=== PATIENT | male | born 1990 | race Caucasian/White ===

== ENCOUNTER 2017-05-01 04:28 | Emergency (ER) | payer SELFPAY ==
[~2017-05-01] VITALS: Ht 177.8 cm; Wt 65.8 kg
[2017-05-01 05:17] LABS: BASOPHILS % (AUTO) 0 % (0-10); EOSINOPHILS # (AUTO) 0.1 10^3/uL (0.0-0.3); EOSINOPHILS % (AUTO) 2 % (0-10); LYMPHOCYTES # (AUTO) 2.7 X 10^3 (1.0-4.0); LYMPHOCYTES % (AUTO) 36 % (12-44); MEAN CORPUSCULAR HEMOGLOBIN 30 PG (25-34); MEAN CORPUSCULAR HGB CONC 35 G/DL (32-36); MEAN CORPUSCULAR VOLUME 86 FL (80-99); MONOCYTES # (AUTO) 0.7 X 10^3 (0.0-1.0); MONOCYTES % (AUTO) 9 % (0-12); NEUTROPHILS % (AUTO) 53 % (42-75); PLATELET COUNT 221 10^3/uL (130-400); RED BLOOD COUNT 4.73 10^6/uL (4.35-5.85); RED CELL DISTRIBUTION WIDTH 12.2 % (10.0-14.5); WHITE BLOOD COUNT 7.5 10^3/uL (4.3-11.0)
[2017-05-01] MEDS ORDERED: NS 100 ML (IVPB) BAG IV ONE (05:30)
[2017-05-01] MEDS ORDERED: IOHEXOL 350 MG/ML 100 ML (OMNIPAQUE 350) VIAL IV ONE (05:30)
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
[2017-05-01 05:42] LABS: ALANINE AMINOTRANSFERASE 19 U/L (0-55); ANION GAP 12 MMOL/L (5-14); ASPARTATE AMINO TRANSFERASE 25 U/L (5-34); BILIRUBIN,TOTAL 0.7 MG/DL (0.1-1.0); BLOOD UREA NITROGEN 15 MG/DL (7-18); BUN/CREATININE RATIO 14; CALCIUM 8.5 MG/DL (8.5-10.1); CARBON DIOXIDE 22 MMOL/L (21-32); CHLORIDE 107 MMOL/L (98-107); CREATININE SERUM 1.11 MG/DL (0.60-1.30); GFR ESTIMATED > 60; GLUCOSE 93 MG/DL (70-105); POTASSIUM 3.6 MMOL/L (3.6-5.0); SODIUM 141 MMOL/L (135-145); TOTAL PROTEIN 6.9 GM/DL (6.4-8.2)
[2017-05-01 06:04] LABS: BILIRUBIN,URINE NEGATIVE (NEGATIVE); KETONES,URINE NEGATIVE (NEGATIVE); LEUKOCYTE ESTERASE ,URINE 1+ (NEGATIVE); NITRITE,URINE NEGATIVE (NEGATIVE); PH,URINE 6 (5-9); PROTEIN,URINE NEGATIVE (NEGATIVE); UROBILINOGEN,URINE NORMAL (NORMAL)
[2017-05-01] MEDS ORDERED: CYCL10TA9 PO (06:19)
[2017-05-01] MEDS ORDERED: KETOROLAC 30 MG/ML VIAL IVP ONE (06:30)
[2017-05-01 06:32] VITALS: BP 139/104
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
== END 2017-05-01 06:32 | disposition home or self-care (01) ==
LOC: ER 04:34
DX: M62.830 Muscle spasm of back (principal); G43.909 Migraine, unspecified, not intractable, without status migrainosus; Z86.19 Personal history of other infectious and parasitic diseases; V86.59XA Driver of other special all-terrain or other off-road motor vehicle injured in nontraffic accident, initial encounter
CPT/HCPCS: 36415; 70450; 71260; 72125; 74177; 80053; 81000; 85025

== ENCOUNTER 2017-05-07 10:23 | Emergency (ER) | payer SELFPAY ==
[~2017-05-07] VITALS: Ht 177.8 cm; Wt 65.8 kg
[~2017-05-07 10:23] MED LIST: CYCL10TA9 PO
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
[2017-05-07 11:27] LABS: BASOPHILS % (AUTO) 0 % (0-10); EOSINOPHILS % (AUTO) 1 % (0-10); LYMPHOCYTES # (AUTO) 1.9 X 10^3 (1.0-4.0); LYMPHOCYTES % (AUTO) 24 % (12-44); MEAN CORPUSCULAR HEMOGLOBIN 30 PG (25-34); MEAN CORPUSCULAR HGB CONC 36 G/DL (32-36); MEAN CORPUSCULAR VOLUME 84 FL (80-99); MONOCYTES # (AUTO) 0.5 X 10^3 (0.0-1.0); MONOCYTES % (AUTO) 7 % (0-12); NEUTROPHILS # (AUTO) 5.2 X 10^3 (1.8-7.8); NEUTROPHILS % (AUTO) 68 % (42-75); PLATELET COUNT 228 10^3/uL (130-400); RED BLOOD COUNT 5.02 10^6/uL (4.35-5.85); WHITE BLOOD COUNT 7.7 10^3/uL (4.3-11.0)
[2017-05-07] MEDS ORDERED: ONDANSETRON 4 MG/2 ML (SDV) Z0FRAN IVP ONE (11:30)
[2017-05-07] MEDS ORDERED: NS IV 1000 ML 1,000 ML IV SCH (11:30)
[2017-05-07] MEDS ORDERED: KETOROLAC 30 MG/ML VIAL IVP ONE (11:30)
[2017-05-07 11:49] LABS: ALANINE AMINOTRANSFERASE 19 U/L (0-55); ALBUMIN 4.3 GM/DL (3.2-4.5); ANION GAP 6 MMOL/L (5-14); ASPARTATE AMINO TRANSFERASE 23 U/L (5-34); BILIRUBIN,TOTAL 0.7 MG/DL (0.1-1.0); BLOOD UREA NITROGEN 15 MG/DL (7-18); BUN/CREATININE RATIO 15; CARBON DIOXIDE 27 MMOL/L (21-32); CHLORIDE 105 MMOL/L (98-107); CREATININE SERUM 1.03 MG/DL (0.60-1.30); GFR ESTIMATED > 60; GLUCOSE 87 MG/DL (70-105); POTASSIUM 4.2 MMOL/L (3.6-5.0); SODIUM 138 MMOL/L (135-145); TOTAL PROTEIN 7.5 GM/DL (6.4-8.2)
[2017-05-07 12:08] LABS: BILIRUBIN,URINE NEGATIVE (NEGATIVE); KETONES,URINE NEGATIVE (NEGATIVE); LEUKOCYTE ESTERASE ,URINE 1+ (NEGATIVE); NITRITE,URINE NEGATIVE (NEGATIVE); PH,URINE 6 (5-9); PROTEIN,URINE NEGATIVE (NEGATIVE); UROBILINOGEN,URINE NORMAL (NORMAL)
[2017-05-07 12:19] LABS: SQUAMOUS EPITHELIAL CELL,UR 0-2 /HPF; WBC,URINE RARE /HPF
[2017-05-07 12:36] VITALS: BP 135/97
== END 2017-05-07 12:35 | disposition home or self-care (01) ==
LOC: EDUNIT# 10:23 → ER 10:25
DX: R42 Dizziness and giddiness (principal); G43.909 Migraine, unspecified, not intractable, without status migrainosus; Z87.39 Personal history of other diseases of the musculoskeletal system and connective tissue; Z87.828 Personal history of other (healed) physical injury and trauma
CPT/HCPCS: 36415; 80053; 80306; 81000; 85025

== ENCOUNTER 2017-05-22 04:30 | Emergency (ER) | payer SELFPAY ==
[~2017-05-22] VITALS: Ht 177.8 cm; Wt 65.8 kg
[2017-05-22 04:52] LABS: BILIRUBIN,URINE NEGATIVE (NEGATIVE); KETONES,URINE NEGATIVE (NEGATIVE); LEUKOCYTE ESTERASE ,URINE 1+ (NEGATIVE); NITRITE,URINE NEGATIVE (NEGATIVE); PH,URINE 7 (5-9); PROTEIN,URINE NEGATIVE (NEGATIVE); UROBILINOGEN,URINE NORMAL (NORMAL)
[2017-05-22 05:00] LABS: SQUAMOUS EPITHELIAL CELL,UR 0-2 /HPF; WBC,URINE 0-2 /HPF
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
[2017-05-22] MEDS ORDERED: MELO15TA14 PO (06:19)
[2017-05-22] MEDS ORDERED: CYCL10TA9 PO (06:19)
[2017-05-22 06:24] VITALS: BP 138/99
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
== END 2017-05-22 06:24 | disposition home or self-care (01) ==
LOC: EDUNIT# 04:30 → ER 04:32
DX: M51.86 Other intervertebral disc disorders, lumbar region; G43.909 Migraine, unspecified, not intractable, without status migrainosus
CPT/HCPCS: 72131; 80306; 81000; 87088; 99282

== ENCOUNTER 2018-11-19 20:24 | Emergency (ER) | payer SELFPAY ==
[~2018-11-19] VITALS: Ht 177.8 cm; Wt 69.4 kg
[~2018-11-19 20:24] MED LIST changes: +MELO15TA14 PO
[2018-11-19] MEDS ORDERED: ONDANSETRON 4 MG (ZOFRAN) ORAL DISSOLVE TAB PO STA (20:32)
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
[2018-11-19] MEDS ORDERED: KETOROLAC 60 MG/2 ML VIAL IM ONE (20:45)
--- NOTE | 2018-11-19 21:12 | Diagnostic Imaging Report ---
INDICATION: Back pain. FINDINGS: 3 views of the lumbar spine shows normal height and alignment of the vertebral bodies. Disc spaces are well-maintained. There is no spondylosis. There is no fracture. IMPRESSION: Normal lumbar spine. Dictated by: Dictated on workstation # [id number]
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
[2018-11-19] MEDS ORDERED: CYCL10TA9 PO (22:06)
[2018-11-19] MEDS ORDERED: IBUP-1780 PO (22:06)
[2018-11-19 22:17] VITALS: BP 125/73
== END 2018-11-19 22:17 | disposition home or self-care (01) ==
LOC: EDUNIT# 20:24 → ER FS 20:25
DX: T74.11XA Adult physical abuse, confirmed, initial encounter (principal); S06.0X9A Concussion with loss of consciousness of unspecified duration, initial encounter; S20.212A Contusion of left front wall of thorax, initial encounter; S10.93XA Contusion of unspecified part of neck, initial encounter; M54.6 Pain in thoracic spine; G43.909 Migraine, unspecified, not intractable, without status migrainosus; R40.2142 Coma scale, eyes open, spontaneous, at arrival to emergency department; R40.2252 Coma scale, best verbal response, oriented, at arrival to emergency department; R40.2362 Coma scale, best motor response, obeys commands, at arrival to emergency department; Y04.8XXA Assault by other bodily force, initial encounter; Y92.009 Unspecified place in unspecified non-institutional (private) residence as the place of occurrence of the external cause; Y07.410 Brother, perpetrator of maltreatment and neglect
CPT/HCPCS: 70450; 71250; 72100; 72125; 96372

== ENCOUNTER → 2018-11-21 | Outpatient (CLI) | payer SELFPAY ==
[~2018-11-21] MED LIST changes: +IBUP-1780 PO
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
== END ==
LOC: RAD FS 11:11
PROVIDERS: ATTEND Family Medicine
DX: S29.9XXA Unspecified injury of thorax, initial encounter (principal)
CPT/HCPCS: 71100

== ENCOUNTER → 2018-12-24 | Outpatient (CLI) | payer SELFPAY ==
--- NOTE | 2018-12-24 09:56 | Diagnostic Imaging Report ---
INDICATION: Syncope, TECHNIQUE: Routine non contrast-enhanced axial images were obtained from the skull base to the vertex. Auto Exposure Controls were utilized during the CT exam to meet ALARA standards for radiation dose reduction COMPARISON: 11/19/2018. FINDINGS: The ventricles and cortical sulci are normal in size and contour. There is no midline shift or mass-effect. No acute intra-axial hemorrhage is seen. There are no abnormal areas of increased or decreased density to suggest acute hemorrhage or edema. No extra-axial masses or collections are present. The bony calvarium is intact. The visualized paranasal sinuses are unremarkable. The mastoid air cells are clear. IMPRESSION: 1. No acute intracranial abnormality. No CT evidence of mass, acute infarct or intracranial hemorrhage. Dictated by: Dictated on workstation # [id number]
== END ==
LOC: RAD FS 09:19
PROVIDERS: ATTEND Family Medicine
DX: R55 Syncope and collapse (principal)
CPT/HCPCS: 70450

== ENCOUNTER 2019-01-31 06:54 | Emergency (ER) | payer SELFPAY ==
[~2019-01-31] VITALS: Ht 177.8 cm; Wt 68.9 kg
--- NOTE | 2019-01-31 07:14 | ED Abdominal Pain ---
General Chief Complaint: Abdominal/GI Problems Stated Complaint: RT SIDE ABD PAIN;VOMITING BLOOD Source of Information: Patient Exam Limitations: No Limitations History of Present Illness Date Seen by Provider: Jan 31, 2019 Time Seen by Provider: 07:12 Initial Comments Patient complains of upper abdominal pain for the past week. Pain is crampy and does not radiate. It is associated with nausea and vomiting. He is vomited 4 times today the last of which was streaked with blood. He denies fevers or chills. His primary care physician ordered labs on him earlier in the week and scheduled an ultrasound. Allergies and Home Medications Allergies Coded Allergies: No Known Drug Allergies (Unverified , 05/01/17) Home Medications Cyclobenzaprine HCl 10 Mg Tablet, 10 MG PO BID PRN for MUSCLE SPASMS Prescribed by: JENNYFER DEL TORO on 11/19/182205 Dicyclomine HCl 20 Mg Tablet, 20 MG PO QID PRN for PAIN-MILD TO MODERATE Prescribed by: BENITA DOUGLAS on 01/31/19 0757 Ibuprofen 800 Mg Tablet, 800 MG PO Q8H PRN for PAIN Prescribed by: JENNYFER DEL TORO on 11/19/182205 Meloxicam 15 Mg Tablet, 15 MG PO DAILY Prescribed by: DESHAUN ROWLAND on 05/22/17 0619 Patient Home Medication List Home Medication List Reviewed: Yes Review of Systems Review of Systems Constitutional: no symptoms reported EENTM: No Symptoms Reported Respiratory: No Symptoms Reported Gastrointestinal: Abdominal Pain, Nausea, Vomiting Genitourinary: No Symptoms Reported Musculoskeletal: no symptoms reported Skin: no symptoms reported All Other Systems Reviewed Negative Unless Noted: Yes Past Jwpgyuj-Vdxotk-Asctph Hx Patient Social History Alcohol Use: Denies Use 2nd Hand Smoke Exposure: No Recent Foreign Travel: No Contact w/Someone Who Travel: No Recent Hopitalizations: No Seasonal Allergies Seasonal Allergies: No Past Medical History Surgeries: No Respiratory: No Cardiac: No Neurological: No Headaches /Migraines Reproductive Disorders: No Genitourinary: No Gastrointestinal: No Musculoskeletal: Yes Degenerate Disk Disease Endocrine: No HEENT: No Cancer: No Psychosocial: No Integumentary: No Psoriasis Blood Disorders: No Adverse Reaction/Blood Tranf: No Physical Exam Vital Signs Vital Signs - First Documented 01/31/19 07:11 Temp 96.1 Pulse 74 Resp 18 B/P (MAP) 145/90 (108) Pulse Ox 99 Capillary Refill : Height/Weight/BMI Height: 5'10.00" Weight: 153lbs. oz. 69.682110ab; BMI Method:Stated General Appearance: WD/WN, no apparent distress HEENT: pharynx normal Neck: supple Respiratory: lungs clear Cardiovascular: regular rate, rhythm, no edema Gastrointestinal: soft; No guarding, No rebound; tenderness (tender in epi gastrium and right upper quadrant, no Renee's) Extremities: normal inspection Neurologic/Psychiatric: alert, normal mood/affect Skin: normal color Progress/Results/Core Measures Results/Orders Lab Results Laboratory Tests Test 01/31/19 07:25 Range/Units White Blood Count 9.2 4.3-11.0 10^3/uL Red Blood Count 5.06 4.35-5.85 10^6/uL Hemoglobin 15.4 13.3-17.7 G/DL Hematocrit 44 40-54 % Mean Corpuscular Volume 88 80-99 FL Mean Corpuscular Hemoglobin 30 25-34 PG Mean Corpuscular Hemoglobin Concent 35 32-36 G/DL Red Cell Distribution Width 12.3 10.0-14.5 % Platelet Count 244 130-400 10^3/uL Mean Platelet Volume 10.3 7.4-10.4 FL Neutrophils (%) (Auto) 70 42-75 % Lymphocytes (%) (Auto) 21 12-44 % Monocytes (%) (Auto) 8 0-12 % Eosinophils (%) (Auto) 1 0-10 % Basophils (%) (Auto) 0 0-10 % Neutrophils # (Auto) 6.4 1.8-7.8 X 10^3 Lymphocytes # (Auto) 1.9 1.0-4.0 X 10^3 Monocytes # (Auto) 0.7 0.0-1.0 X 10^3 Eosinophils # (Auto) 0.1 0.0-0.3 10^3/uL Basophils # (Auto) 0.0 0.0-0.1 10^3/uL Sodium Level 140 135-145 MMOL/L Potassium Level 3.7 3.6-5.0 MMOL/L Chloride Level 99 98-107 MMOL/L Carbon Dioxide Level 28 21-32 MMOL/L Anion Gap 13 5-14 MMOL/L Blood Urea Nitrogen 11 7-18 MG/DL Creatinine 1.14 0.60-1.30 MG/DL Estimat Glomerular Filtration Rate > 60 BUN/Creatinine Ratio 10 Glucose Level 94 70-105 MG/DL Calcium Level 9.0 8.5-10.1 MG/DL Corrected Calcium 8.7 8.5-10.1 MG/DL Total Bilirubin 0.8 0.1-1.0 MG/DL Aspartate Amino Transf (AST/SGOT) 21 5-34 U/L Alanine Aminotransferase (ALT/SGPT) 20 0-55 U/L Alkaline Phosphatase 94 40-136 U/L Total Protein 7.8 6.4-8.2 GM/DL Albumin 4.4 3.2-4.5 GM/DL Lipase 140 H 8-78 U/L My Orders Orders - BENITA DOUGLAS MD Cbc With Automated Diff (01/31/19 07:07) Comprehensive Metabolic Panel (01/31/19 07:07) Lipase (01/31/19 07:07) Dicyclomine Injection (Bentyl Injection) (01/31/19 07:15) Medications Given in ED Current Medications Medications Dose Ordered Sig/Gerry Route Start Time Stop Time Status Last Admin Dose Admin Dicyclomine HCl 20 mg ONCE ONCE IM 01/31/19 07:15 01/31/19 07:16 DC 01/31/19 07:20 20 MG Vital Signs/I&O 01/31/19 01/31/19 07:11 08:07 Temp 96.1 Pulse 74 59 Resp 18 16 B/P (MAP) 145/90 (108) 135/80 (98) Pulse Ox 99 99 Progress Progress Note : Time: 07:59 Progress Note This was discussed with patient. He feels better after Bentyl. Elevated lipase was noted. Advised to follow-up primary care physician and get his ultrasound as soon as possible. Departure Impression Primary Impression: Abdominal pain Additional Impression: Biliary colic Disposition: 01 HOME, SELF-CARE Condition: Stable Departure-Patient Inst. Decision time for Depature: 07:54 Referrals: TIFFANI MAN MD (PCP/Family) Primary Care Physician Patient Instructions: Acute Abdomen (Belly Pain), Adult (DC) Add. Discharge Instructions: Plan diet. No spicy, greasy fried foods. Get ultrasound done as soon as possible. All discharge instructions reviewed with patient and/or family. Voiced understanding. Scripts Dicyclomine HCl (Dicyclomine HCl) 20 Mg Tablet 20 MG PO QID PRN for PAIN-MILD TO MODERATE, #20 TAB 0 Refills Prov: BENITA DOUGLAS MD 01/31/19 BENITA DOUGLAS MD Jan 31, 2019 07:14
[2019-01-31] MEDS ORDERED: DICYCLOMINE 10 MG/ML (BENTYL) 2 ML AMP IM ONE (07:15)
[2019-01-31 07:35] LABS: HEMATOCRIT 44 % (40-54); HEMOGLOBIN 15.4 G/DL (13.3-17.7); MEAN CORPUSCULAR HEMOGLOBIN 30 PG (25-34); MEAN CORPUSCULAR HGB CONC 35 G/DL (32-36); MEAN CORPUSCULAR VOLUME 88 FL (80-99); RED CELL DISTRIBUTION WIDTH 12.3 % (10.0-14.5); WHITE BLOOD COUNT 9.2 10^3/uL (4.3-11.0)
[2019-01-31 07:36] LABS: BASOPHILS % (AUTO) 0 % (0-10); EOSINOPHILS # (AUTO) 0.1 10^3/uL (0.0-0.3); EOSINOPHILS % (AUTO) 1 % (0-10); LYMPHOCYTES # (AUTO) 1.9 X 10^3 (1.0-4.0); LYMPHOCYTES % (AUTO) 21 % (12-44); MEAN PLATELET VOLUME 10.3 FL (7.4-10.4); MONOCYTES # (AUTO) 0.7 X 10^3 (0.0-1.0); MONOCYTES % (AUTO) 8 % (0-12); NEUTROPHILS # (AUTO) 6.4 X 10^3 (1.8-7.8); NEUTROPHILS % (AUTO) 70 % (42-75); PLATELET COUNT 244 10^3/uL (130-400)
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
[2019-01-31 07:57] LABS: BUN/CREATININE RATIO 10; CARBON DIOXIDE 28 MMOL/L (21-32); CHLORIDE 99 MMOL/L (98-107); CREATININE SERUM 1.14 MG/DL (0.60-1.30); GFR ESTIMATED > 60; POTASSIUM 3.7 MMOL/L (3.6-5.0); SODIUM 140 MMOL/L (135-145)
[2019-01-31] MEDS ORDERED: DICY20TA10 PO (07:57)
[2019-01-31 07:58] LABS: ALANINE AMINOTRANSFERASE 20 U/L (0-55); ALBUMIN 4.4 GM/DL (3.2-4.5); ALKALINE PHOSPHATASE 94 U/L (40-136); BILIRUBIN,TOTAL 0.8 MG/DL (0.1-1.0); GLUCOSE 94 MG/DL (70-105); LIPASE 140 U/L (8-78); TOTAL PROTEIN 7.8 GM/DL (6.4-8.2)
[2019-01-31 08:07] VITALS: BP 135/80
== END 2019-01-31 08:13 | disposition home or self-care (01) ==
LOC: EDUNIT# 06:54 → ER FS 06:56
DX: K80.50 Calculus of bile duct without cholangitis or cholecystitis without obstruction (principal); G43.909 Migraine, unspecified, not intractable, without status migrainosus
CPT/HCPCS: 36415; 80053; 83690; 85025

== ENCOUNTER → 2019-04-10 | Outpatient (CLI) | payer SELFPAY ==
[~2019-04-10] MED LIST changes: +CATHETER FLUSH 10 ML SYR IV PRN; +DICY20TA10 PO
--- NOTE | 2019-04-10 21:23 | Diagnostic Imaging Report ---
INDICATION: Right upper quadrant pain. EXAMINATION: Patient was administered 5.0 mCi technetium 99m Choletec intravenously and imaging over the abdomen was performed. After 60 minutes patient ingested one can of Ensure and gallbladder ejection fraction was calculated. FINDINGS: There is homogeneous uptake of activity by the liver. There is prompt excretion of activity into the common duct and gallbladder. Normal passage of activity into the small bowel is seen. Gallbladder ejection fraction is 83%. IMPRESSION: Normal HIDA scan and gallbladder ejection fraction. Dictated by: Dictated on workstation # [id number]
== END ==
LOC: CARD 12:19
PROVIDERS: ATTEND Surgery
DX: R10.13 Epigastric pain (principal)
CPT/HCPCS: 78227

== ENCOUNTER 2019-05-21 14:45 | Emergency (ER) | payer SELFPAY ==
[~2019-05-21] VITALS: Ht 177 cm; Wt 80.0 kg
[~2019-05-21 14:45] MED LIST changes: -CATHETER FLUSH 10 ML SYR IV PRN
--- NOTE | 2019-05-21 15:11 | ED General ---
General Stated Complaint: WOUND CHECK Source of Information: Patient Exam Limitations: No Limitations History of Present Illness Date Seen by Provider: May 21, 2019 Time Seen by Provider: 14:55 Initial Comments Patient had a lap savannah today in [place] by Dr John Zelaya. Afterward, had some bleeding through the bandage and went back to surgery ctr where dressing was changed by Dr Zelaya and sent home. Comes to this ER now w c/o bleeding through his dressing again. Allergies and Home Medications Allergies Coded Allergies: No Known Drug Allergies (Unverified , 05/01/17) Home Medications Cyclobenzaprine HCl 10 Mg Tablet, 10 MG PO BID PRN for MUSCLE SPASMS Prescribed by: JENNYFER DEL TORO on 11/19/182205 Dicyclomine HCl 20 Mg Tablet, 20 MG PO QID PRN for PAIN-MILD TO MODERATE Prescribed by: BENITA DOUGLAS on 01/31/19 0757 Ibuprofen 800 Mg Tablet, 800 MG PO Q8H PRN for PAIN Prescribed by: JENNYFER Gutierrez ENYART on 11/19/182205 Meloxicam 15 Mg Tablet, 15 MG PO DAILY Prescribed by: DESHAUN ROWLAND on 05/22/17 0619 Patient Home Medication List Home Medication List Reviewed: Yes Review of Systems Review of Systems Constitutional: no symptoms reported; No fever, No malaise, No weakness Respiratory: no symptoms reported Cardiovascular: no symptoms reported Gastrointestinal: abdominal pain; No nausea, No vomiting Skin: see HPI, other (bleeding from belly button (post op incision) 2 to lap savannah) Past Glelnwt-Ockyoe-Aldubt Hx Past Med/Social Hx: Reviewed Nursing Past Med/Soc Hx Patient Social History 2nd Hand Smoke Exposure: No Recent Hopitalizations: No Seasonal Allergies Seasonal Allergies: No Past Medical History Surgeries: No Respiratory: No Cardiac: No Neurological: Yes Headaches /Migraines, Traumatic Brain Injury Reproductive Disorders: No Genitourinary: No Gastrointestinal: No Musculoskeletal: Yes Degenerate Disk Disease Endocrine: No HEENT: No Cancer: No Psychosocial: No Integumentary: No Psoriasis Blood Disorders: No Adverse Reaction/Blood Tranf: No Physical Exam Vital Signs Vital Signs - First Documented 05/21/19 15:12 Temp 37.3 Pulse 83 Resp 18 B/P (MAP) 150/79 (102) Pulse Ox 98 O2 Delivery Room Air Capillary Refill : Height, Weight, BMI Height: 5'10.00" Weight: 152lbs. oz. 68.676131qo; BMI Method:Stated General Appearance: No Apparent Distress, WD/WN Gastrointestinal: No Distended, No Guarding; Other (small oozing of blood from umbilical incision. sub cutaneous stitch intact, but a little loose.) Progress/Results/Core Measures Suspected Sepsis SIRS Temperature: Pulse: Respiratory Rate: Blood Pressure / Mean: Results/Orders Vital Signs/I&O 05/21/19 05/21/19 15:12 15:21 Temp 37.3 37.3 Pulse 83 83 Resp 18 18 B/P (MAP) 150/79 (102) 150/79 (102) Pulse Ox 98 98 O2 Delivery Room Air Capillary Refill : Progress Note : Progress Note nurse instructed to apply gel-foam type material (hemostatic) and pressure dressing. Called Dr Zelaya @ [phone], he will see pt in the office in [place] tomorrow if still bleeding. Departure Impression Primary Impression: Postoperative hemorrhage from incision Disposition: 01 HOME, SELF-CARE Condition: Improved Departure-Patient Inst. Referrals: TIFFANI MAN MD (PCP/Family) Primary Care Physician Patient Instructions: Bleeding After Surgery Add. Discharge Instructions: Call Dr Zelaya's office in [place] tomorrow to be seen if bleeding continues. ALLAN ESTEVEZ DO May 21, 2019 15:11
[2019-05-21 15:21] VITALS: BP 150/79
== END 2019-05-21 15:22 | disposition home or self-care (01) ==
LOC: EDUNIT# 14:45 → ER FS 14:46
DX: L76.22 Postprocedural hemorrhage of skin and subcutaneous tissue following other procedure (principal); G43.909 Migraine, unspecified, not intractable, without status migrainosus; Z87.820 Personal history of traumatic brain injury; Z90.49 Acquired absence of other specified parts of digestive tract
CPT/HCPCS: 99282

== ENCOUNTER 2019-05-21 18:08 | Emergency (ER) | payer SELFPAY ==
[~2019-05-21] VITALS: Ht 177.8 cm; Wt 80.0 kg
[2019-05-21] MEDS ORDERED: LIDOCAINE/EPI 2% 1:100,00 (XYLOCAINE) 20 ML VIAL ONE (18:17)
--- NOTE | 2019-05-21 18:29 | ED Integumentary General ---
General Chief Complaint: Skin/Wound Problems Stated Complaint: WOUND CHECK Source: patient Exam Limitations: no limitations History of Present Illness Date Seen by Provider: May 21, 2019 Time Seen by Provider: 18:20 Initial Comments Return to the ER with continued bleeding from his umbilical incision. Soaked through the dressing again. Called Dr Zelaya @ [phone]- discussed w him. He does not have privileges to see pt in this ER, but could meet pt in [place] if necessary. Requested a simple nylon suture be applied to umbilical incision and to call back if concerns or unusual findings. Allergies and Home Medications Allergies Coded Allergies: No Known Drug Allergies (Unverified , 05/01/17) Home Medications Cyclobenzaprine HCl 10 Mg Tablet, 10 MG PO BID PRN for MUSCLE SPASMS Prescribed by: JENNYFER DEL TORO on 11/19/182205 Dicyclomine HCl 20 Mg Tablet, 20 MG PO QID PRN for PAIN-MILD TO MODERATE Prescribed by: BENITA DOUGLAS on 01/31/19 0757 Ibuprofen 800 Mg Tablet, 800 MG PO Q8H PRN for PAIN Prescribed by: JENNYFER DEL TORO on 11/19/182205 Meloxicam 15 Mg Tablet, 15 MG PO DAILY Prescribed by: DESHAUN ROWLAND on 05/22/17 0619 Patient Home Medication List Home Medication List Reviewed: Yes Review of Systems Review of Systems Constitutional: no symptoms reported; No dizziness, No fever, No malaise, No weakness Respiratory: no symptoms reported Cardiovascular: No palpitations, No syncope Skin: other (bleeding from umbilical incision) Past Hbwyceg-Tziakw-Cxtftq Hx Past Med/Social Hx: Reviewed Nursing Past Med/Soc Hx Patient Social History Alcohol Use: Occasionally Uses Recreational Drug Use: No 2nd Hand Smoke Exposure: No Recent Hopitalizations: No Physical Abuse: No Sexual Abuse: No Mistreated: No Fear: No Seasonal Allergies Seasonal Allergies: No Past Medical History Surgeries: No Gallbladder Respiratory: No Cardiac: No Neurological: Yes Headaches /Migraines, Traumatic Brain Injury Reproductive Disorders: No Genitourinary: No Gastrointestinal: No Musculoskeletal: Yes Degenerate Disk Disease Endocrine: No HEENT: No Cancer: No Psychosocial: No Integumentary: No Psoriasis Blood Disorders: No Adverse Reaction/Blood Tranf: No Physical Exam Vital Signs Vital Signs - First Documented 05/21/19 18:08 Temp 37.1 Pulse 114 Resp 20 B/P (MAP) 148/89 (108) Pulse Ox 97 Capillary Refill : General Appearance: WD/WN, no apparent distress Cardiovascular: regular rate, rhythm Respiratory: no respiratory distress Skin: normal color, warm/dry, other (umbilical incision w small amount of bleeding from incision. Gauze saturated, but not severe bleed.) Procedures/Interventions Wound Location: Other (umbilical incision (post lap savannah)) Wound Length (cm): 2 Wound's Depth, Shape: linear Wound Explored: clean Anesthesia: Lidocaine w/ Epi Volume Anesthetic (ccs): 3 Suture: Ethlion Suture Size: 3-0 Number of Sutures: 2 Sterile Dressing Applied?: Yes Progress/Results/Core Measures Results/Orders My Orders Orders - ALLAN ESTEVEZ DO Lidocaine/Epi 2% 1:100,000 (Xylocaine/Ep (05/21/19 18:17) Lidocaine/Epi Mpf 2% 1:200,000 (Xylocain (05/21/19 18:30) Lidocaine/Epi 2% 1:100,000 (Xylocaine/Ep (05/21/19 18:45) Medications Given in ED Current Medications Medications Dose Ordered Sig/Gerry Route Start Time Stop Time Status Last Admin Dose Admin Lidocaine/ Epinephrine 5 ml ONCE ONCE INJ 05/21/19 18:45 05/21/19 18:46 DC 05/21/19 18:42 5 ML Vital Signs/I&O 05/21/19 18:08 Temp 37.1 Pulse 114 Resp 20 B/P (MAP) 148/89 (108) Pulse Ox 97 Progress Progress Note : Progress Note Re-eval after sutures and no active bleeding after 30m. filled umbilicus w surgicel in layers and then pressure dressing applied by nurse. Informed Dr Zelaya @ 1930 and he will see pt in [place] tomorrow if any problems or concerns. Departure Impression Primary Impression: Post-op bleeding Qualified Codes: L76.21 - Postprocedural hemorrhage of skin and subcutaneous tissue following a dermatologic procedure Disposition: 01 HOME, SELF-CARE Condition: Improved Departure-Patient Inst. Referrals: TIFFANI MAN MD (PCP/Family) Primary Care Physician Patient Instructions: Bleeding After Surgery Add. Discharge Instructions: All discharge instructions reviewed with patient and/or family. Voiced unde rstanding. Call Dr ZELAYA tomorrow (in [place]) if you are having any problems or concerns. ALLAN ESTEVEZ DO May 21, 2019 18:29
[2019-05-21] MEDS ORDERED: LIDOCAINE/EPI 2% 1:200,00 (XYLOCAINE) 10 ML VIAL INJ ONE (18:30)
[2019-05-21] MEDS ORDERED: LIDOCAINE/EPI 2% 1:100,00 (XYLOCAINE) 20 ML VIAL INJ ONE (18:45)
--- NOTE | 2019-05-21 18:45 | NUR ---
repairing lap site inc of umbilicus. 3-0 Ethilon 2 stitches placed. Pt will be observed 30 min at least for bleeding. Surgicel will be placed at time of pressure dsg over site at discharge.
--- NOTE | 2019-05-21 19:10 | NUR ---
Report to Gladis STEARNS.
[2019-05-21 19:34] VITALS: BP 117/65
== END 2019-05-21 19:34 | disposition home or self-care (01) ==
LOC: EDUNIT# 18:08 → ER FS 18:09
DX: L76.22 Postprocedural hemorrhage of skin and subcutaneous tissue following other procedure (principal); G43.909 Migraine, unspecified, not intractable, without status migrainosus; Z87.820 Personal history of traumatic brain injury
CPT/HCPCS: 12001

== ENCOUNTER → 2019-05-28 | Outpatient (CLI) | payer SELFPAY ==
--- NOTE | 2019-05-28 10:30 | Diagnostic Imaging Report ---
PROCEDURE: CT head without contrast. TECHNIQUE: Multiple contiguous axial images were obtained through the brain without the use of intravenous contrast. Auto Exposure Controls were utilized during the CT exam to meet ALARA standards for radiation dose reduction. DATE: May 28, 2019. COMPARISON: CT head December 24, 2018. November 19, 2018. May 01, 2017. INDICATION: 29-year-old male, atypical migraine headaches. Loss of vision 3 weeks ago for 15 minutes. FINDINGS: The ventricles and cerebral spinal fluid spaces are of normal size and configuration for the patient's age. There is no mass effect or midline shift. There is no acute intracranial hemorrhage. There is no abnormal extra-axial fluid collection. The visualized portions of the paranasal sinuses, mastoid air cells and middle ears are well aerated. IMPRESSION: 1. Unremarkable CT head examination without intravenous contrast. Dictated by: Dictated on workstation # [id number]
== END ==
LOC: RAD FS 09:28
PROVIDERS: ATTEND Family Medicine
DX: G43.009 Migraine without aura, not intractable, without status migrainosus (principal); H54.7 Unspecified visual loss
CPT/HCPCS: 70450

== ENCOUNTER 2020-04-25 10:23 | Emergency (ER) | payer SELFPAY ==
[~2020-04-25] VITALS: Ht 177.7 cm; Wt 68.1 kg
[2020-04-25] MEDS ORDERED: KETOROLAC 30 MG/ML VIAL IVP ONE (10:45)
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
[2020-04-25 10:46] LABS: BASOPHILS % (AUTO) 0 % (0-10); EOSINOPHILS % (AUTO) 0 % (0-10); HEMATOCRIT 43 % (40-54); LYMPHOCYTES # (AUTO) 1.9 X 10^3 (1.0-4.0); LYMPHOCYTES % (AUTO) 27 % (12-44); MEAN CORPUSCULAR HEMOGLOBIN 30 PG (25-34); MEAN CORPUSCULAR HGB CONC 35 G/DL (32-36); MEAN CORPUSCULAR VOLUME 85 FL (80-99); MONOCYTES # (AUTO) 0.4 X 10^3 (0.0-1.0); MONOCYTES % (AUTO) 5 % (0-12); NEUTROPHILS # (AUTO) 4.6 X 10^3 (1.8-7.8); NEUTROPHILS % (AUTO) 67 % (42-75); PLATELET COUNT 219 10^3/uL (130-400); WHITE BLOOD COUNT 6.9 10^3/uL (4.3-11.0)
[2020-04-25 10:54] LABS: ALBUMIN 4.2 GM/DL (3.2-4.5); CHLORIDE 103 MMOL/L (98-107); POTASSIUM 4.6 MMOL/L (3.6-5.0); SODIUM 136 MMOL/L (135-145)
[2020-04-25 10:55] LABS: CALCIUM 8.6 MG/DL (8.5-10.1)
[2020-04-25 10:56] LABS: GLUCOSE 143 MG/DL (70-105); TOTAL PROTEIN 7.6 GM/DL (6.4-8.2)
[2020-04-25 10:58] LABS: BILIRUBIN,TOTAL 0.6 MG/DL (0.1-1.0); CARBON DIOXIDE 21 MMOL/L (21-32)
[2020-04-25 11:00] LABS: ALKALINE PHOSPHATASE 82 U/L (40-136); CREATININE SERUM 1.12 MG/DL (0.60-1.30); GFR ESTIMATED > 60
[2020-04-25 11:01] LABS: BUN/CREATININE RATIO 18
[2020-04-25 11:03] LABS: ALANINE AMINOTRANSFERASE 31 U/L (0-55)
[2020-04-25 11:28] VITALS: BP 121/88
--- NOTE | 2020-04-25 11:35 | Diagnostic Imaging Report ---
EXAMINATION: Chest 1 view HISTORY: Chest pain. COMPARISON: 11/21/2018. FINDINGS: The lung volumes are normal. No focal consolidation is seen. No large pleural effusion or pneumothorax is seen. The cardiomediastinal silhouette is normal in size and contour. No acute osseous abnormality is seen. IMPRESSION: 1. No acute pleuroparenchymal process. Dictated by: Dictated on workstation # [id number]
== END 2020-04-25 11:31 | disposition home or self-care (01) ==
LOC: EDUNIT# 10:23 → ER 10:24
DX: R07.89 Other chest pain (principal); G43.909 Migraine, unspecified, not intractable, without status migrainosus; Z87.828 Personal history of other (healed) physical injury and trauma; Z87.820 Personal history of traumatic brain injury
CPT/HCPCS: 36415; 71045; 80053; 84484; 85025; 93005

== ENCOUNTER → 2020-05-17 | Outpatient (CLI) | payer SELFPAY ==
[2020-05-17 17:12] LABS: BASOPHILS % (AUTO) 0 % (0-10); EOSINOPHILS # (AUTO) 0.1 10^3/uL (0.0-0.3); EOSINOPHILS % (AUTO) 1 % (0-10); HEMATOCRIT 45 % (40-54); HEMOGLOBIN 15.8 G/DL (13.3-17.7); LYMPHOCYTES # (AUTO) 2.2 X 10^3 (1.0-4.0); LYMPHOCYTES % (AUTO) 26 % (12-44); MEAN CORPUSCULAR HEMOGLOBIN 30 PG (25-34); MEAN CORPUSCULAR HGB CONC 35 G/DL (32-36); MEAN CORPUSCULAR VOLUME 84 FL (80-99); MEAN PLATELET VOLUME 10.1 FL (7.4-10.4); MONOCYTES # (AUTO) 0.5 X 10^3 (0.0-1.0); MONOCYTES % (AUTO) 5 % (0-12); NEUTROPHILS # (AUTO) 5.9 X 10^3 (1.8-7.8); NEUTROPHILS % (AUTO) 68 % (42-75); PLATELET COUNT 222 10^3/uL (130-400); WHITE BLOOD COUNT 8.7 10^3/uL (4.3-11.0)
[2020-05-17 17:14] LABS: ALANINE AMINOTRANSFERASE 35 U/L (0-55); ALBUMIN 4.3 GM/DL (3.2-4.5); ALKALINE PHOSPHATASE 97 U/L (40-136); BILIRUBIN,TOTAL 0.6 MG/DL (0.1-1.0); BUN/CREATININE RATIO 12; CALCIUM 8.7 MG/DL (8.5-10.1); CARBON DIOXIDE 28 MMOL/L (21-32); CHLORIDE 103 MMOL/L (98-107); CHOLESTEROL 213 MG/DL (< 200); CREATININE SERUM 1.14 MG/DL (0.60-1.30); GFR ESTIMATED > 60; GLUCOSE 87 MG/DL (70-105); HDL CHOLESTEROL 38 MG/DL (40-60); MAGNESIUM 2.5 MG/DL (1.6-2.4); POTASSIUM 4.1 MMOL/L (3.6-5.0); SODIUM 139 MMOL/L (135-145); TOTAL PROTEIN 7.8 GM/DL (6.4-8.2); TRIGLYCERIDES 161 MG/DL (<150); VLDL CHOLESTEROL 32 MG/DL (5-40)
[2020-05-17 17:17] LABS: ERYTHROCYTE SEDIMENTATION RATE 6 MM/HR (0-15)
[2020-05-17 17:36] LABS: FREE T4 (FREE THYROXINE) 1.02 NG/DL (0.70-1.48)
== END ==
LOC: LAB 16:26
PROVIDERS: ATTEND Internal Medicine Cardiovascular Disease
DX: R07.9 Chest pain, unspecified (principal); R55 Syncope and collapse
CPT/HCPCS: 36415; 80053; 80061; 83735; 84439; 84443; 85025; 85652

== ENCOUNTER → 2020-05-18 | Outpatient (CLI) | payer SELFPAY | LOC: CARD 13:53 | PROVIDERS: ATTEND Internal Medicine Cardiovascular Disease | DX: R07.9 Chest pain, unspecified (principal); R55 Syncope and collapse | CPT/HCPCS: 93225; 93226; 93306; 93351 ==

== ENCOUNTER 2020-09-23 14:04 | Emergency (ER) | payer SELFPAY ==
[~2020-09-23] VITALS: Ht 177 cm; Wt 66.0 kg
--- NOTE | 2020-09-23 15:33 | Diagnostic Imaging Report ---
PROCEDURE: CT head without contrast. TECHNIQUE: Multiple contiguous axial images were obtained through the brain without the use of intravenous contrast. Auto Exposure Controls were utilized during the CT exam to meet ALARA standards for radiation dose reduction. INDICATION: Right-sided headache. Intermittent speech problems. FINDINGS: There is no mass, shift of the midline or hemorrhage to suggest an acute intracranial abnormality. The normal tentorial blush is evident. The ventricles are not abnormally dilated and stable in size when compared to the prior exam of 05/28/2019. The bone windows show no evidence for a skull fracture or for a destructive lesion. The orbits and sinuses were not visualized in their entirety. There does appear to be mild bilateral ethmoid sinusitis. IMPRESSION: 1. There is no evidence for an acute intracranial abnormality. 2. If clinical concern regarding an underlying abnormality persists, then MRI would be recommended for further study. Dictated by: Dictated on workstation # [id number]
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
[2020-09-23 16:35] VITALS: BP 132/62
== END 2020-09-23 16:35 | disposition home or self-care (01) ==
LOC: EDUNIT# 14:04 → ER 14:06
DX: R51.9 Headache, unspecified (principal); Z87.820 Personal history of traumatic brain injury
CPT/HCPCS: 70450

== ENCOUNTER 2021-03-03 08:38 | Emergency (ER) | payer SELFPAY ==
[~2021-03-03] VITALS: Ht 177 cm; Wt 67.0 kg
[2021-03-03 08:38] VITALS: BP 140/101
--- NOTE | 2021-03-03 08:58 | ED Lower Extremity ---
General Chief Complaint: Lower Extremity Stated Complaint: L LEG PAIN/BACK PAIN Nursing Triage Note: ARRIVED VIA AMB TO ROOM 07. STATES HE WOKE UP X2 DAYS AGO WITH LEFT KNEE PAIN AND NOW IS HAVING PAIN IN LEFT LEG AND BACK. DENIES INJURY. HAS NOT TAKEN ANYTHING FOR THE PAIN. Source: patient Exam Limitations: no limitations History of Present Illness Date Seen by Provider: Mar 03, 2021 Time Seen by Provider: 08:50 Initial Comments Patient is a 30-year-old male who presents to the emergency department today with a chief complaint of left knee pain. Patient states that it started 2 days ago and it extends from just below the knee up into the thigh and radiates into the low back. Patient denies any trauma. He has not taken anything for the pain, ibuprofen, Tylenol or naproxen. Walking on the left leg makes it worse. Nothing makes it any better. No loss of bowel or bladder function. No loss of sensation. All other review of systems reviewed and negative except as stated above. Onset: other (2 days ago) Severity: mild Pain/Injury Location: left knee Method of Injury: unknown Allergies and Home Medications Allergies Coded Allergies: No Known Drug Allergies (Unverified , 05/01/17) Patient Home Medication List Home Medication List Reviewed: Yes Review of Systems Constitutional: see HPI Respiratory: no symptoms reported Cardiovascular: no symptoms reported Gastrointestinal: no symptoms reported Musculoskeletal: joint pain (left knee), muscle cramps (left leg) Skin: no symptoms reported Psychiatric/Neurological: No Symptoms Reported All Other Systems Reviewed Negative Unless Noted: Yes Past Ktldbzy-Tizbwo-Alpsbr Hx Patient Social History Tobacco Use?: No Substance use?: No Alcohol Use?: No Seasonal Allergies Seasonal Allergies: No Past Medical History Surgeries: No Gallbladder Respiratory: No Cardiac: No Neurological: Yes Headaches /Migraines, Traumatic Brain Injury Reproductive Disorders: No Genitourinary: No Gastrointestinal: No Musculoskeletal: Yes Degenerate Disk Disease Endocrine: No HEENT: No Cancer: No Psychosocial: No Integumentary: No Psoriasis Blood Disorders: No Adverse Reaction/Blood Tranf: No Physical Exam Vital Signs Vital Signs - First Documented 03/03/21 08:38 Temp 36.0 Pulse 69 Resp 16 B/P (MAP) 140/101 (114) Pulse Ox 99 O2 Delivery Room Air Capillary Refill : Less Than 3 Seconds Height, Weight, BMI Height: 5'10.00" Weight: 152lbs. oz. [id number]; 21.00 BMI Method:Stated General Appearance: WD/WN, no apparent distress Neck: full range of motion Cardiovascular: other (distal pulses intact) Respiratory: lungs clear, normal breath sounds, no respiratory distress, no accessory muscle use Gastrointestinal: non tender, soft Hips: bilateral hip non-tender, bilateral hip normal inspection, bilateral hip normal range of motion, bilateral hip no evidence of injury Legs: bilateral leg non-tender, bilateral leg normal inspection, bilateral leg normal range of motion, bilateral leg no evidence of injury Knees: left knee pain, left knee other (left knee without effusion; no instability on anterior and posterior drawer testing; neg lachmans and erlin's; positive crepitance in the left knee on flexion) Ankles: bilateral ankle non-tender, bilateral ankle normal inspection, bilateral ankle normal range of motion, bilateral ankle no evidence of injury Feet: bilateral foot non-tender, bilateral foot normal inspection, bilateral foot normal range of motion, bilateral foot no evidence of injury Neurologic/Psychiatric: alert, normal mood/affect, oriented x 3 Skin: normal color, warm/dry Procedures/Interventions Suture Size: 3-0 Progress/Results/Core Measures Results/Orders Vital Signs/I&O 03/03/21 08:38 Temp 36.0 Pulse 69 Resp 16 B/P (MAP) 140/101 (114) Pulse Ox 99 O2 Delivery Room Air Blood Pressure Mean: 114 Departure Impression Primary Impression: Internal derangement of left knee Disposition: 01 HOME, SELF-CARE Condition: Stable Departure-Patient Inst. Decision time for Depature: 09:01 Referrals: TIFFANI MAN MD (PCP/Family) Primary Care Physician Patient Instructions: Knee Pain Add. Discharge Instructions: Take over the counter naproxen (alleve) 2 pills with food twice a day as needed for pain; for a maximum of 5 days. Alternate heat and ice for comfort. Follow up with your primary care doctor for further evaluation of your knee pain. Work/School Note: Work Release Form Date Seen in the Emergency Department: Mar 03, 2021 Return to Work: Mar 03, 2021 JAYLEN PALMA MD Mar 03, 2021 08:58
[2021-03-03] MEDS ORDERED: KETOROLAC 30 MG/ML VIAL IM ONE (09:15)
== END 2021-03-03 09:10 | disposition home or self-care (01) ==
LOC: EDUNIT# 08:38 → ER 08:40
DX: M23.92 Unspecified internal derangement of left knee (principal)
CPT/HCPCS: 99284

== ENCOUNTER 2021-05-12 00:01 | Emergency (ER) | payer SELFPAY ==
[~2021-05-12] VITALS: Ht 177.8 cm; Wt 68.0 kg
--- OUTSIDE RECORDS SUMMARY | 2021-05-12 01:18 | XMS REPORT | Clinical Summary ---
Author Author [facility] Organization [facility] Address Unknown Phone Unavailable Care Team Providers Care Page Designer Name Role Phone Pola Vincent MD PCP Source Comments Some departments are not documenting in the electronic medical record. If you d o not see the information that you expected, contact Release of Information in [facility] [employer] Information Management department at [phone] for further assistan ce in locating additional records.[facility] Allergies No Known Active Allergies Medications End Date Status Medication Sig Dispensed Refills Start Date Active NO HOME MEDICATIONS 0 Active Problems Not on file Family History Relation Name Status Comments Father Alive Mother Alive Social History Date Tobacco Use Types Packs/Day Years Used Never Smoker Smokeless Tobacco: Never Used Comments Alcohol Use Standard Drinks/Week Never 0 (1 standard drink = 0.6 o z pure alcohol) Alcohol Habits Answer Date Recorded How often do you have a drink containing alcohol? Never 05/03/2020 How many drinks containing alcohol do you have on No t asked a typical day when you are drinking? How often do you have six or more drinks on one Not asked occasion? Comment: Not asked Sex Assigned at Date Recorded Not on file Last Filed Vital Signs Reading Time Taken Comments Vital Sign 138/84 05/03/2020 1:09 PM CDT Blood Pressure 72 05/03/2020 1:09 PM CDT Pulse - - Temperature - - Respiratory Rate - - Oxygen Saturation - - Inhaled Oxygen Concentration 68.9 kg (152 lb) 05/03/2020 1:09 PM CDT Weight 177.8 cm (5' 10") 05/03/2020 1:09 PM CDT Height 21.81 05/03/2020 1:09 PM CDT Body Mass Index Plan of Treatment Health Maintenance Due Date Last Done Comments HIV SCREENING 2005 DTAP/TDAP VACCINES ( - 2008 Tdap) HEPATITIS C SCREENING 2008 PHYSICAL (COMPREHENSIVE) 2008 EXAM INFLUENZA VACCINE 05/20/2021 Results Not on filefrom Last 3 Months Advance Directives Patient Charge Coordinator Explanation Type Date Recorded Advance Directive/DPOA
[2021-05-12] MEDS: LACTATED RINGERS 1,000 ML IV ONE (02:27)
[2021-05-12 02:44] LABS: BASOPHILS % (AUTO) 1 % (0-10); EOSINOPHILS # (AUTO) 0.1 10^3/uL (0.0-0.3); EOSINOPHILS % (AUTO) 1 % (0-10); HEMATOCRIT 45 % (40-54); HEMOGLOBIN 15.4 g/dL (13.3-17.7); LYMPHOCYTES # (AUTO) 2.3 10^3/uL (1.0-4.0); LYMPHOCYTES % (AUTO) 30 % (12-44); MEAN CORPUSCULAR HEMOGLOBIN 30 pg (25-34); MEAN CORPUSCULAR HGB CONC 35 g/dL (32-36); MEAN CORPUSCULAR VOLUME 88 fL (80-99); MEAN PLATELET VOLUME 10.1 fL (9.0-12.2); MONOCYTES # (AUTO) 0.6 10^3/uL (0.0-1.0); MONOCYTES % (AUTO) 8 % (0-12); NEUTROPHILS # (AUTO) 4.7 10^3/uL (1.8-7.8); NEUTROPHILS % (AUTO) 61 % (42-75); PLATELET COUNT 239 10^3/uL (130-400); WHITE BLOOD COUNT 7.8 10^3/uL (4.3-11.0)
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
[2021-05-12] MEDS: ONDANSETRON 4 MG/2 ML (SDV) Z0FRAN IVP ONE (02:49)
[2021-05-12] MEDS: FAMOTIDINE 20MG/2ML IV (PEPCID) IV STA (02:49)
[2021-05-12] MEDS: ANTACID SUSP 30 ML UDC (MYLANTA) PO ONE (02:49)
[2021-05-12] MEDS: LIDOCAINE 2% VISCOUS 15 ML UDC PO ONE (02:49)
[2021-05-12 02:52] LABS: ALBUMIN 4.1 GM/DL (3.2-4.5); POTASSIUM 4.2 MMOL/L (3.6-5.0)
[2021-05-12 02:55] LABS: TOTAL PROTEIN 7.5 GM/DL (6.4-8.2)
[2021-05-12 02:57] LABS: BILIRUBIN,TOTAL 0.6 MG/DL (0.1-1.0)
[2021-05-12 02:58] LABS: CREATININE SERUM 1.16 MG/DL (0.60-1.30)
[2021-05-12 03:01] LABS: MAGNESIUM 2.9 MG/DL (1.6-2.4)
[2021-05-12 03:09] LABS: INR 1.1 (0.8-1.4); PROTHROMBIN TIME PATIENT 14.2 SEC (12.2-14.7)
[2021-05-12] MEDS ORDERED: FAMO-119 PO (05:36)
[2021-05-12] MEDS ORDERED: ONDA4TAB11 SL (05:36)
[2021-05-12 05:44] VITALS: BP 114/79
--- NOTE | 2021-05-12 06:46 | Diagnostic Imaging Report ---
INDICATION: Chest pain. Frontal chest obtained at 04:13 a.m. FINDINGS: Heart and mediastinal silhouette are normal in appearance. The lungs are clear. There is no pneumothorax or pleural fluid collection. IMPRESSION: Negative chest. Dictated by: Dictated on workstation # [id number]
== END 2021-05-12 05:47 | disposition home or self-care (01) ==
LOC: ER 00:02 → EDUNIT# 01:13 → ER 01:15
DX: R07.89 Other chest pain (principal); R10.13 Epigastric pain; I10 Essential (primary) hypertension; Z87.820 Personal history of traumatic brain injury; Z20.822 Contact with and (suspected) exposure to COVID-19
CPT/HCPCS: 36415; 71045; 80053; 83690; 83735; 83874; 84484; 85025; 85610; 85730; 86141; 87635; 87804; 93005

== ENCOUNTER 2021-06-02 19:53 | Emergency (ER) | payer SELFPAY ==
[~2021-06-02] VITALS: Ht 178 cm; Wt 66.0 kg
[~2021-06-02 19:53] MED LIST changes: +FAMO-119 PO; +ONDA4TAB11 SL
[2021-06-02 20:05] VITALS: BP 124/93
[2021-06-02] MEDS ORDERED: AMOX-358 PO (20:21)
--- NOTE | 2021-06-02 20:22 | ED EENT ---
History of Present Illness General Chief Complaint: Ear Problems Stated Complaint: EAR PAIN, THROAT PAIN, SHOULDER PAIN Source: patient Exam Limitations: no limitations History of Present Illness Date Seen by Provider: Jun 02, 2021 Time Seen by Provider: 20:19 Initial Comments Patient is a 31-year-old male who presents ED with left ear pain. Ear pain over the past 4 weeks. Feels like fluid is in his ear. Patient does have a history of psoriasis. He reports rash of the outer ear for the past year. Patient reports some mild drainage to left ear. Has been using hydroperoxide. Over the past few days rating pain to the left sided neck and throat. Denies fever, vomiting, diarrhea. Did have flulike symptoms last week which has improved. Not currently on any type antibiotics. Concerning for an ear infection. Allergies and Home Medications Allergies Coded Allergies: No Known Drug Allergies (Unverified , 05/01/17) Patient Home Medication List Famotidine (Pepcid) 20 Mg Tablet, 20 MG PO BID Prescribed by: ALBAN GARNETT on 05/12/21 0536 Ondansetron (Ondansetron Odt) 4 Mg Tab.rapdis, 4 MG SL Q4H PRN for NAUSEA/VOMITING Prescribed by: ALBAN GARNETT on 05/12/21 0536 Past Thfrxim-Kfwrfi-Xljnoj Hx Seasonal Allergies Seasonal Allergies: No Past Medical History Surgery/Hospitalization HX: CHOLECYSTECTOMY Surgeries: Yes Gallbladder Respiratory: No Cardiac: Yes Hypertension Neurological: Yes Headaches /Migraines, Traumatic Brain Injury Reproductive Disorders: No Genitourinary: No Gastrointestinal: No Musculoskeletal: Yes Degenerate Disk Disease Endocrine: No HEENT: No Cancer: No Psychosocial: No Integumentary: No Psoriasis Blood Disorders: No Adverse Reaction/Blood Tranf: No Family Medical History Heart Disease, CAD Under 55 Years Old, Hypertension, Migraines, Stroke Physical Exam Height, Weight, BMI Height: 5'10.00" Weight: 152lbs. oz. 68.088333hy; 21.00 BMI Method:Stated Procedures/Interventions Suture Size: 3-0 Departure Impression Primary Impression: Otitis media Disposition: HOME, SELF-CARE Condition: Improved Departure-Patient Inst. Decision time for Depature: 20:21 Referrals: TIFFANI MAN MD (PCP/Family) Primary Care Physician Patient Instructions: Serous Otitis Media Scripts Amoxicillin/Potassium Clav (Augmentin [id number] Tablet) 1 Each Tablet 1 EACH PO BID, #20 TAB Prov: STACY HERMOSILLO 06/02/21 STACY HERMOSILLO Jun 02, 2021 20:22
== END 2021-06-02 20:30 | disposition home or self-care (01) ==
LOC: EDUNIT# 19:53 → ER 19:56
DX: H66.92 Otitis media, unspecified, left ear (principal); I10 Essential (primary) hypertension; Z87.820 Personal history of traumatic brain injury
CPT/HCPCS: 99282

== ENCOUNTER 2021-06-09 22:34 | Emergency (ER) | payer SELFPAY ==
[~2021-06-09] VITALS: Ht 70 cm; Wt 65.8 kg
[~2021-06-09 22:34] MED LIST changes: +AMOX-358 PO
[2021-06-09 22:45] VITALS: BP 141/101
[2021-06-09] MEDS ORDERED: KETOROLAC 30 MG/ML VIAL IVP ONE (22:45)
[2021-06-09] MEDS ORDERED: LACTATED RINGERS 1,000 ML IV ONE (22:45)
--- NOTE | 2021-06-09 22:49 | ED Neck-Back Pain/Injury ---
General Stated Complaint: EAR ACHE,SORE THROAT, SOB Source of Information: Patient Exam Limitations: No Limitations History of Present Illness Date Seen by Provider: Jun 09, 2021 Time Seen by Provider: 22:36 Initial Comments Patient to ER by private conveyance from home with chief complaint of continued pain on the left ear down his left neck anteriorly and difficulty swallowing and sleeping. He was here for earache about 1-1/2 weeks ago was put on some antibiotics and his symptoms did not get any better. He took a tramadol he had leftover today the pain and only barely touched it. He is not having any fevers chills nausea vomiting diarrhea. No discharge from the ear. He has psoriasis but no other significant medical history. Allergies and Home Medications Allergies Coded Allergies: No Known Drug Allergies (Unverified , 05/01/17) Patient Home Medication List Home Medication List Reviewed: Yes Amoxicillin/Potassium Clav (Augmentin 875-125 Tablet) 1 Each Tablet, 1 EACH PO BID Prescribed by: ALEYDA VITAL on 06/02/212020 Amoxicillin/Potassium Clav (Augmentin 875-125 Tablet) 1 Each Tablet, 1 EACH PO BID Prescribed by: LIZZETH LINDSEY on 06/09/212353 Famotidine (Pepcid) 20 Mg Tablet, 20 MG PO BID Prescribed by: ALBAN GARNETT on 05/12/21 0536 Hydrocodone/Acetaminophen (Hydrocodone-Acetamin 5-325 mg) 1 Each Tablet, 1 TAB PO Q6H PRN for PAIN-MODERATE (5-7) Prescribed by: LIZZETH LINDSEY on 06/09/21 2355 Ondansetron (Ondansetron Odt) 4 Mg Tab.rapdis, 4 MG SL Q4H PRN for NAUSEA/VOMITING Prescribed by: ALBAN GARNETT on 05/12/21 0536 Review of Systems Constitutional: No chills, No fever, No malaise EENTM: No ear discharge, No ear pain Respiratory: No cough, No short of breath Cardiovascular: No chest pain, No edema Gastrointestinal: No abdominal pain, No nausea, No vomiting Genitourinary: No discharge, No dysuria Musculoskeletal: No back pain, No joint pain All Other Systems Reviewed Negative Unless Noted: Yes Past Kiqnssr-Fdufry-Kjntti Hx Patient Social History Tobacco Use?: No Use of E-Cig and/or Vaping dev: No Seasonal Allergies Seasonal Allergies: No Past Medical History Surgery/Hospitalization HX: CHOLECYSTECTOMY Surgeries: Yes Gallbladder Respiratory: No Cardiac: Yes Hypertension Neurological: Yes Headaches /Migraines, Traumatic Brain Injury Reproductive Disorders: No Genitourinary: No Gastrointestinal: No Musculoskeletal: Yes Degenerate Disk Disease Endocrine: No HEENT: No Cancer: No Psychosocial: No Integumentary: No Psoriasis Blood Disorders: No Adverse Reaction/Blood Tranf: No Family Medical History Heart Disease, CAD Under 55 Years Old, Hypertension, Migraines, Stroke Physical Exam Vital Signs Vital Signs - First Documented 06/09/21 22:45 Temp 36.8 Pulse 83 Resp 18 B/P (MAP) 141/101 (114) Pulse Ox 97 O2 Delivery Room Air Capillary Refill : Height, Weight, BMI Height: 5'10.00" Weight: 152lbs. oz. 68.044410gg; 20.00 BMI Method:Stated General Appearance: WD/WN, Mild Distress HEENT: PERRL/EOMI, TMs Normal, Other (Psoriasis plaques on the pinna mild tenderness to manipulation of the left ear. TMs are intact with out erythema, injection or redness of the canal. Landmarks are intact. No tenderness over direct palpation of the mastoid process bilateral) Neck: Full Range of Motion, Lymphadenopathy (L) (Tender shotty anterior left- sided cervical lymphadenopathy and fullness) Cardiovascular: Regular Rate, Rhythm, Normal Peripheral Pulses Respiratory: Lungs Clear, Normal Breath Sounds, No Accessory Muscle Use, No Respiratory Distress Peripheral Pulses: 2+ Radial Pulses (R), 2+ Radial Pulses (L) Gastrointestinal: Normal Bowel Sounds, No Organomegaly, Non Tender, Soft Extremity: Normal Capillary Refill, Normal Inspection, No Pedal Edema Neurologic/Psychiatric: Alert, Oriented x3 Skin: Normal Color, Warm/Dry Procedures/Interventions Suture Size: 3-0 Progress/Results/Core Measures Results/Orders Lab Results Laboratory Tests Test 06/09/21 22:50 Range/Units White Blood Count 8.7 4.3-11.0 10^3/uL Red Blood Count 5.03 4.30-5.52 10^6/uL Hemoglobin 15.1 13.3-17.7 g/dL Hematocrit 43 40-54 % Mean Corpuscular Volume 86 80-99 fL Mean Corpuscular Hemoglobin 30 25-34 pg Mean Corpuscular Hemoglobin Concent 35 32-36 g/dL Red Cell Distribution Width 11.5 10.0-14.5 % Platelet Count 272 130-400 10^3/uL Mean Platelet Volume 9.9 9.0-12.2 fL Immature Granulocyte % (Auto) 0 % Neutrophils (%) (Auto) 60 42-75 % Lymphocytes (%) (Auto) 31 12-44 % Monocytes (%) (Auto) 7 0-12 % Eosinophils (%) (Auto) 2 0-10 % Basophils (%) (Auto) 1 0-10 % Neutrophils # (Auto) 5.2 1.8-7.8 10^3/uL Lymphocytes # (Auto) 2.7 1.0-4.0 10^3/uL Monocytes # (Auto) 0.6 0.0-1.0 10^3/uL Eosinophils # (Auto) 0.1 0.0-0.3 10^3/uL Basophils # (Auto) 0.0 0.0-0.1 10^3/uL Immature Granulocyte # (Auto) 0.0 0.0-0.1 10^3/uL Sodium Level 139 135-145 MMOL/L Potassium Level 4.1 3.6-5.0 MMOL/L Chloride Level 103 98-107 MMOL/L Carbon Dioxide Level 24 21-32 MMOL/L Anion Gap 12 5-14 MMOL/L Blood Urea Nitrogen 14 7-18 MG/DL Creatinine 1.11 0.60-1.30 MG/DL Estimat Glomerular Filtration Rate 77 BUN/Creatinine Ratio 13 Glucose Level 99 70-105 MG/DL Calcium Level 8.9 8.5-10.1 MG/DL Corrected Calcium 9.0 8.5-10.1 MG/DL Total Bilirubin 0.6 0.1-1.0 MG/DL Aspartate Amino Transf (AST/SGOT) 23 5-34 U/L Alanine Aminotransferase (ALT/SGPT) 35 0-55 U/L Alkaline Phosphatase 94 40-136 U/L C-Reactive Protein High Sensitivity 0.22 0.00-0.50 MG/DL Total Protein 7.3 6.4-8.2 GM/DL Albumin 3.9 3.2-4.5 GM/DL My Orders Orders - LIZZETH LINDSEY Ed Iv/Invasive Line Start (06/09/21 22:45) Lactated Ringers (Lr 1000 Ml Iv Solution (06/09/21 22:45) Cbc With Automated Diff (06/09/21 22:45) Comprehensive Metabolic Panel (06/09/21 22:45) Hs C Reactive Protein (06/09/21 22:45) Ct Neck (Soft Tissue) W (06/09/21 22:45) Ketorolac Injection (Toradol Injection) (06/09/21 22:45) Iohexol Injection (Omnipaque 350 Mg/Ml 1 (06/09/21 23:00) Received Contrast (Hold Metformin- Contr (06/09/21 23:00) Ns (Ivpb) (Sodium Chloride 0.9% Ivpb Bag (06/09/21 23:00) Rx-Hydrocodone/Apap 5-325 Mg (Rx-Vicodin (06/10/21 00:00) Lidocaine 2% Viscous 15 Ml (Xylocaine Vi (06/10/21 00:00) Medications Given in ED Current Medications Medications Dose Ordered Sig/Gerry Route Start Time Stop Time Status Last Admin Dose Admin Acetaminophen/ Hydrocodone Bitart 1 ea Q6H PRN PO 06/10/21 00:00 06/10/21 00:14 DC 06/10/21 00:11 1 EA Iohexol 75 ml ONCE ONCE IV 06/09/21 23:00 06/09/21 23:01 DC 06/09/21 23:23 75 ML Ketorolac Tromethamine 30 mg ONCE ONCE IVP 06/09/21 22:45 06/09/21 22:49 DC 06/09/21 22:58 30 MG Lactated Ringer's 1,000 ml @ 0 mls/hr Q0M ONCE IV 06/09/21 22:45 06/09/21 22:49 DC 06/09/21 22:58 1,000 MLS/HR Lidocaine HCl 5 ml ONCE ONCE PO 06/10/21 00:00 06/10/21 00:01 DC 06/10/21 00:11 5 ML Sodium Chloride 100 ml ONCE ONCE IV 06/09/21 23:00 06/09/21 23:01 DC 06/09/21 23:23 100 ML Vital Signs/I&O 06/09/21 22:45 Temp 36.8 Pulse 83 Resp 18 B/P (MAP) 141/101 (114) Pulse Ox 97 O2 Delivery Room Air Progress Progress Note : Time: 22:48 Progress Note He does have some obvious soft tissue swelling retropharyngeal on the left side with a little uvula midline deviation. Suspect he has a deep tissue neck abscess. He has a bad dental caries/abscess has been dealing with for the past several months in his left lower molar. We will start with some Toradol, a liter of fluids and get a CT of his soft tissue of his neck with IV contrast. Other possibilities include a mastoiditis. His ears look fine. Diagnostic Imaging Diagonstic Imaging: CT Plain Films/CT/US/NM/MRI: other (Soft tissue neck) Comments [facility], [place] NAME: GISELE VIRGEN [facility] REC#: [id number] PT STATUS: REG ER : 1990 PHYSICIAN: LIZZETH LINDSEY MD ADMIT DATE: 06/09/21/ER Draft Date of Exam:06/09/21 CT NECK (SOFT TISSUE) W PROCEDURE: CT neck soft tissue with contrast. TECHNIQUE: Multiple contiguous axial images were obtained through the neck after the administration of contrast. Auto Exposure Controls were utilized during the CT exam to meet ALARA standards for radiation dose reduction. INDICATION: Left ear pain/ache COMPARISON: None FINDINGS: The visualized portions of the nasopharynx, oropharynx and the hypopharynx are unremarkable. There is no airway compromise. No pathologically enlarged cervical lymph nodes are seen. No masses or fluid collections are identified in the neck. The deep spaces of the neck are unremarkable. There is no abnormal enhancement. The parotid, submandibular and thyroid glands are unremarkable. The visualized portions of the intracranial structures demonstrate no acute abnormalities. The paranasal sinuses show small amount of debris within the right maxillary sinus. The visualized portion of the lung apices and mediastinum are unremarkable. IMPRESSION: Small amount of debris within the right maxillary sinus. Otherwise, unremarkable postcontrast CT of the neck. Dictated on workstation # [id number] Dict: 06/09/212326 Trans: 06/09/21 2331 [facility] [id number] Interpreted by: STEVENSON ADAMSON MD Electronically signed by: Reviewed: Reviewed by Me Departure Impression Primary Impression: Dental abscess Disposition: 01 HOME, SELF-CARE Condition: Stable Departure-Patient Inst. Decision time for Depature: 23:52 Referrals: TIFFANI MAN MD (PCP/Family) Primary Care Physician Patient Instructions: Tooth Abscess (DC) Add. Discharge Instructions: Augmentin 1 tablet twice a day with food for the next week. Tylenol and ibuprofen as necessary for pain. Cyclobenzaprine as necessary for spasms of the muscles in your neck. Topical lidocaine applied directly over the top of the tooth as necessary for pain. Hydrocodone 1 tablet every 6 hours as necessary for severe breakthrough pain Warm moist heat applied to your jaw as necessary for pain. Follow-up with a dentist promptly Scripts Hydrocodone/Acetaminophen (Hydrocodone-Acetamin 5-325 mg) 1 Each Tablet 1 TAB PO Q6H PRN for PAIN-MODERATE (5-7), #8 TAB 0 Refills Prov: LIZZETH LINDSEY 06/09/21 Amoxicillin/Potassium Clav (Augmentin 875-125 Tablet) 1 Each Tablet 1 EACH PO BID, #14 TAB 0 Refills Prov: LIZZETH LINDSEY 06/09/21 Work/School Note: Work Release Form Date Seen in the Emergency Department: Jun 09, 2021 Return to Work: Jun 11, 2021 Restrictions: No Restrictions LIZZETH LINDSEY Jun 09, 2021 22:49
[2021-06-09 22:57] LABS: BASOPHILS % (AUTO) 1 % (0-10); EOSINOPHILS # (AUTO) 0.1 10^3/uL (0.0-0.3); EOSINOPHILS % (AUTO) 2 % (0-10); HEMATOCRIT 43 % (40-54); HEMOGLOBIN 15.1 g/dL (13.3-17.7); LYMPHOCYTES # (AUTO) 2.7 10^3/uL (1.0-4.0); LYMPHOCYTES % (AUTO) 31 % (12-44); MEAN CORPUSCULAR HEMOGLOBIN 30 pg (25-34); MEAN CORPUSCULAR HGB CONC 35 g/dL (32-36); MEAN CORPUSCULAR VOLUME 86 fL (80-99); MEAN PLATELET VOLUME 9.9 fL (9.0-12.2); MONOCYTES # (AUTO) 0.6 10^3/uL (0.0-1.0); MONOCYTES % (AUTO) 7 % (0-12); NEUTROPHILS # (AUTO) 5.2 10^3/uL (1.8-7.8); NEUTROPHILS % (AUTO) 60 % (42-75); PLATELET COUNT 272 10^3/uL (130-400); WHITE BLOOD COUNT 8.7 10^3/uL (4.3-11.0)
[2021-06-09] MEDS ORDERED: HOLD METFORMIN - RECEIVED CONTRAST 20 ML VIAL IV SCH (23:00)
[2021-06-09] MEDS ORDERED: IOHEXOL 350 MG/ML 100 ML (OMNIPAQUE 350) VIAL IV ONE (23:00)
[2021-06-09] MEDS ORDERED: NS 100 ML (IVPB) BAG IV ONE (23:00)
[2021-06-09 23:07] LABS: ALBUMIN 3.9 GM/DL (3.2-4.5)
[2021-06-09 23:08] LABS: POTASSIUM 4.1 MMOL/L (3.6-5.0)
[2021-06-09 23:09] LABS: CALCIUM 8.9 MG/DL (8.5-10.1)
[2021-06-09 23:10] LABS: TOTAL PROTEIN 7.3 GM/DL (6.4-8.2)
[2021-06-09 23:12] LABS: BILIRUBIN,TOTAL 0.6 MG/DL (0.1-1.0)
[2021-06-09 23:14] LABS: CREATININE SERUM 1.11 MG/DL (0.60-1.30)
--- NOTE | 2021-06-09 23:31 | Diagnostic Imaging Report ---
PROCEDURE: CT neck soft tissue with contrast. TECHNIQUE: Multiple contiguous axial images were obtained through the neck after the administration of contrast. Auto Exposure Controls were utilized during the CT exam to meet ALARA standards for radiation dose reduction. INDICATION: Left ear pain/ache COMPARISON: None FINDINGS: The visualized portions of the nasopharynx, oropharynx and the hypopharynx are unremarkable. There is no airway compromise. No pathologically enlarged cervical lymph nodes are seen. No masses or fluid collections are identified in the neck. The deep spaces of the neck are unremarkable. There is no abnormal enhancement. The parotid, submandibular and thyroid glands are unremarkable. The visualized portions of the intracranial structures demonstrate no acute abnormalities. The paranasal sinuses show small amount of debris within the right maxillary sinus. The visualized portion of the lung apices and mediastinum are unremarkable. IMPRESSION: Small amount of debris within the right maxillary sinus. Otherwise, unremarkable postcontrast CT of the neck. Dictated by: Dictated on workstation # [id number]
[2021-06-09] MEDS ORDERED: ACHD5005 PO (23:54)
[2021-06-09] MEDS ORDERED: AMOX-358 PO (23:54)
[2021-06-10] MEDS ORDERED: LIDOCAINE 2% VISCOUS 15 ML UDC PO ONE
== END 2021-06-10 00:14 | disposition home or self-care (01) ==
LOC: EDUNIT# 22:34 → ER 22:35
DX: K04.7 Periapical abscess without sinus (principal); I10 Essential (primary) hypertension; Z87.820 Personal history of traumatic brain injury
CPT/HCPCS: 36415; 70491; 80053; 85025; 86141

== ENCOUNTER 2021-06-29 14:08 | Emergency (ER) | payer SELFPAY ==
[~2021-06-29] VITALS: Ht 180 cm; Wt 145.0 kg
[~2021-06-29 14:08] MED LIST changes: +ACHD5005 PO
[2021-06-29 14:30] VITALS: BP 131/103
--- NOTE | 2021-06-29 14:53 | ED Psychosocial ---
General Chief Complaint: Psych/Social Disorder Stated Complaint: SUICIDAL IDEATION Nursing Triage Note: Patient has presented to ER with cc of having "crazy thoughts". He reports that today he was fired from his job, he has been able to see his kids - "mom won't let him see the kids". Patient reports that he really is not wanting to harm himself. He states that he really would like to get back on his depression medications. He has been with [facility] in the past. Source: patient Exam Limitations: no limitations History of Present Illness Date Seen by Provider: Jun 29, 2021 Time Seen by Provider: 14:14 Initial Comments 31-year-old male with past medical history of migraines and depression coming in because he is feeling depressed and feels like he does not want a live. He says there is a lot of stress mostly with his first not letting him see his kids and he recently got fired today. He says he has no actual thoughts to hurt him self but just possibly does not have the will to live and wants to be back on his depression medications. He is otherwise denying any hallucinations, drug use, or any physical complaints at this time. He has recently had some teeth removed and he has some follow-up with a couple more to be removed but this is being handled. Allergies and Home Medications Allergies Coded Allergies: No Known Drug Allergies (Unverified , 05/01/17) Patient Home Medication List Home Medication List Reviewed: Yes Amoxicillin/Potassium Clav (Augmentin 875-125 Tablet) 1 Each Tablet, 1 EACH PO BID Prescribed by: ALEYDA VITAL on 06/02/212020 Amoxicillin/Potassium Clav (Augmentin 875-125 Tablet) 1 Each Tablet, 1 EACH PO BID Prescribed by: LIZZETH LINDSEY on 06/09/21 1567 Famotidine (Pepcid) 20 Mg Tablet, 20 MG PO BID Prescribed by: ALBAN GARNETT on 05/12/21 0536 Hydrocodone/Acetaminophen (Hydrocodone-Acetamin 5-325 mg) 1 Each Tablet, 1 TAB PO Q6H PRN for PAIN-MODERATE (5-7) Prescribed by: LIZZETH LINDSEY on 06/09/21 5857 Ondansetron (Ondansetron Odt) 4 Mg Tab.rapdis, 4 MG SL Q4H PRN for NAUSEA/VOMITING Prescribed by: ALBAN GARNETT on 05/12/21 0536 Review of Systems Constitutional: No chills EENTM: No blurred vision Respiratory: No cough Cardiovascular: No chest pain Gastrointestinal: No abdominal pain Genitourinary: No dysuria Musculoskeletal: No back pain Skin: no symptoms reported Psychiatric/Neurological: Depressed All Other Systems Reviewed Negative Unless Noted: Yes Past Yrfbcnz-Jecots-Icphym Hx Patient Social History Tobacco Use?: No Smoking Status: Unknown if Ever Smoked Use of E-Cig and/or Vaping dev: No Use of E-Cig and/or Vaping Rodriguez: Unknown if Ever Used Substance use?: No Alcohol Use?: No Pt feels they are or have been: No Seasonal Allergies Seasonal Allergies: No Past Medical History Surgery/Hospitalization HX: CHOLECYSTECTOMY Surgeries: Yes Gallbladder Respiratory: No Cardiac: Yes Hypertension Neurological: Yes Headaches /Migraines, Traumatic Brain Injury Reproductive Disorders: No Genitourinary: No Gastrointestinal: No Musculoskeletal: Yes Degenerate Disk Disease Endocrine: No HEENT: No Cancer: No Psychosocial: No Integumentary: No Psoriasis Blood Disorders: No Adverse Reaction/Blood Tranf: No Family Medical History Heart Disease, CAD Under 55 Years Old, Hypertension, Migraines, Stroke Physical Exam Vital Signs - First Documented 06/29/21 14:30 Temp 36.5 Pulse 86 Resp 18 B/P (MAP) 131/103 (112) Pulse Ox 99 O2 Delivery Room Air Capillary Refill : Height, Weight, BMI Height: 5'10.00" Weight: 152lbs. oz. 68.816319pa; 44.00 BMI Method:Stated General Appearance: WD/WN, no apparent distress HEENT: PERRL/EOMI, normal ENT inspection, pharynx normal Neck: non-tender, full range of motion, supple, normal inspection Respiratory: chest non-tender, lungs clear, normal breath sounds, no respiratory distress, no accessory muscle use Cardiovascular: regular rate, rhythm, no edema, no murmur Gastrointestinal: normal bowel sounds, non tender, soft; No guarding, No rebound, No tenderness Extremities: normal range of motion, non-tender, normal inspection, no pedal edema, no calf tenderness, normal capillary refill Neurologic/Psychiatric: no motor/sensory deficits, alert, normal mood/affect Appearance/Memory: appropriate appearance, neat Behavior/Eye Contact: cooperative, good eye contact, decreased rate of speech, other (flat) Thoughts/Hallucinations: normal thought pattern, no apparent hallucination; No auditory hallucinations, No flight of ideas Skin: normal color, warm/dry Lymphatic: no adenopathy Procedures/Interventions Suture Size: 3-0 Progress/Results/Core Measures Results/Orders Lab Results Laboratory Tests Test 06/29/21 14:25 06/29/21 14:38 Range/Units White Blood Count 10.2 4.3-11.0 10^3/uL Red Blood Count 5.29 4.30-5.52 10^6/uL Hemoglobin 15.8 13.3-17.7 g/dL Hematocrit 45 40-54 % Mean Corpuscular Volume 85 80-99 fL Mean Corpuscular Hemoglobin 30 25-34 pg Mean Corpuscular Hemoglobin Concent 35 32-36 g/dL Red Cell Distribution Width 11.9 10.0-14.5 % Platelet Count 258 130-400 10^3/uL Mean Platelet Volume 10.3 9.0-12.2 fL Immature Granulocyte % (Auto) 0 % Neutrophils (%) (Auto) 61 42-75 % Lymphocytes (%) (Auto) 31 12-44 % Monocytes (%) (Auto) 6 0-12 % Eosinophils (%) (Auto) 1 0-10 % Basophils (%) (Auto) 0 0-10 % Neutrophils # (Auto) 6.3 1.8-7.8 X 10^3 Lymphocytes # (Auto) 3.2 1.0-4.0 X 10^3 Monocytes # (Auto) 0.6 0.0-1.0 X 10^3 Eosinophils # (Auto) 0.1 0.0-0.3 10^3/uL Basophils # (Auto) 0.0 0.0-0.1 10^3/uL Immature Granulocyte # (Auto) 0.0 0.0-0.1 10^3/uL Sodium Level 140 135-145 MMOL/L Potassium Level 4.0 3.6-5.0 MMOL/L Chloride Level 104 98-107 MMOL/L Carbon Dioxide Level 25 21-32 MMOL/L Anion Gap 11 5-14 MMOL/L Blood Urea Nitrogen 16 7-18 MG/DL Creatinine 1.00 0.60-1.30 MG/DL Estimat Glomerular Filtration Rate 87 BUN/Creatinine Ratio 16 Glucose Level 98 70-105 MG/DL Calcium Level 9.0 8.5-10.1 MG/DL Corrected Calcium 8.6 8.5-10.1 MG/DL Total Bilirubin 0.5 0.1-1.0 MG/DL Aspartate Amino Transf (AST/SGOT) 20 5-34 U/L Alanine Aminotransferase (ALT/SGPT) 20 0-55 U/L Alkaline Phosphatase 101 40-136 U/L Total Protein 7.7 6.4-8.2 GM/DL Albumin 4.5 3.2-4.5 GM/DL Salicylates Level < 0.3 L 5.0-20.0 MG/DL Acetaminophen Level < 10 L 10-30 UG/ML Serum Alcohol < 10 <10 MG/DL Urine Color YELLOW Urine Clarity CLEAR Urine pH 6.5 5-9 Urine Specific Tamiment 1.020 1.016-1.022 Urine Protein NEGATIVE NEGATIVE Urine Glucose (UA) NEGATIVE NEGATIVE Urine Ketones NEGATIVE NEGATIVE Urine Nitrite NEGATIVE NEGATIVE Urine Bilirubin NEGATIVE NEGATIVE Urine Urobilinogen 0.2 < = 1.0 MG/DL Urine Leukocyte Esterase NEGATIVE NEGATIVE Urine RBC (Auto) NEGATIVE NEGATIVE Urine RBC NONE /HPF Urine WBC NONE /HPF Urine Squamous Epithelial Cells RARE /HPF Urine Crystals NONE /LPF Urine Bacteria NEGATIVE /HPF Urine Casts NONE /LPF Urine Mucus NEGATIVE /LPF Urine Culture Indicated NO Urine Opiates Screen NEGATIVE NEGATIVE Urine Oxycodone Screen NEGATIVE NEGATIVE Urine Methadone Screen NEGATIVE NEGATIVE Urine Propoxyphene Screen NEGATIVE NEGATIVE Urine Barbiturates Screen NEGATIVE NEGATIVE Ur Tricyclic Antidepressants Screen NEGATIVE NEGATIVE Urine Phencyclidine Screen NEGATIVE NEGATIVE Urine Amphetamines Screen NEGATIVE NEGATIVE Urine Methamphetamines Screen NEGATIVE NEGATIVE Urine Benzodiazepines Screen NEGATIVE NEGATIVE Urine Cocaine Screen NEGATIVE NEGATIVE Urine Cannabinoids Screen NEGATIVE NEGATIVE My Orders Orders - STACY BENSON MD Ua Culture If Indicated (06/29/21 14:48) Cbc With Automated Diff (06/29/21 14:48) Comprehensive Metabolic Panel (06/29/21 14:48) Alcohol (06/29/21 14:48) Drug Screen Stat (Urine) (06/29/21 14:48) Acetaminophen (06/29/21 14:48) Salicylate (06/29/21 14:48) Ekg Tracing (06/29/21 14:48) Ed Iv/Invasive Line Start (06/29/21 14:48) Monitor-Rhythm Ecg Trace Only (06/29/21 14:48) Bh Status Checks/Observation Q15M (06/29/21 14:48) Ed Iv/Invasive Line Start (06/29/21 14:48) Vital Signs/I&O 06/29/21 14:30 Temp 36.5 Pulse 86 Resp 18 B/P (MAP) 131/103 (112) Pulse Ox 99 O2 Delivery Room Air Blood Pressure Mean: 112 Progress Progress Note : Progress Note 31-year-old male with above history coming in because he is feeling depressed and having passive thoughts of wanting to not live but has no plan and does not think he would do anything to harm himself. ABCs were intact and vitals were stable on presentation. Physical exam without any acute abnormalities. He has no acute complaints at this time as well. Labs are essentially unremarkable with no concerns. At that point he was cleared from mental health standpoint to be screened. This screener was very backed up today and was unable to talk to him until around 6:30 PM. They got back to us at 7:30 PM and said they had agreed upon a safety plan which I think is a good plan with this patient given his lack of plan to harm himself and he is help seeking at this time. I believe he is stable for discharge. He was sent home with strict return precautions Initial ECG Impression Date: Jun 29, 2021 Initial ECG Impression Time: 14:24 Initial ECG Rate: 70 Initial ECG Rhythm: Normal Sinus Comment Narrow QRS, normal axis, no significant ST changes or T wave abnormalities Departure Impression Primary Impression: Passive suicidal ideations Disposition: 01 HOME, SELF-CARE Condition: Stable Departure-Patient Inst. Decision time for Depature: 20:00 Referrals: TIFFANI MAN MD (PCP/Family) Primary Care Physician Patient Instructions: Depression, Adult (DC) Add. Discharge Instructions: You were seen in the emergency department as you were feeling depressed and feeling like you did not want to live. You have come up with a safety plan with our mental health screener. If you have any worsening thoughts or you begin to develop a plan to harm yourself please immediately call 911 or come back to the ER. STACY BENSON MD Jun 29, 2021 14:53
[2021-06-29 14:58] LABS: WHITE BLOOD COUNT 10.2 10^3/uL (4.3-11.0)
[2021-06-29 14:59] LABS: BILIRUBIN,URINE NEGATIVE (NEGATIVE); CLARITY,URINE CLEAR; COLOR,URINE YELLOW; GLUCOSE, URINE (UA) NEGATIVE (NEGATIVE); KETONES,URINE NEGATIVE (NEGATIVE); LEUKOCYTE ESTERASE ,URINE NEGATIVE (NEGATIVE); NITRITE,URINE NEGATIVE (NEGATIVE); PH,URINE 6.5 (5-9); PROTEIN,URINE NEGATIVE (NEGATIVE)
[2021-06-29 14:59] LABS: BASOPHILS % (AUTO) 0 % (0-10); EOSINOPHILS # (AUTO) 0.1 10^3/uL (0.0-0.3); EOSINOPHILS % (AUTO) 1 % (0-10); HEMATOCRIT 45 % (40-54); HEMOGLOBIN 15.8 g/dL (13.3-17.7); LYMPHOCYTES # (AUTO) 3.2 X 10^3 (1.0-4.0); LYMPHOCYTES % (AUTO) 31 % (12-44); MEAN CORPUSCULAR HEMOGLOBIN 30 pg (25-34); MEAN CORPUSCULAR HGB CONC 35 g/dL (32-36); MEAN CORPUSCULAR VOLUME 85 fL (80-99); MEAN PLATELET VOLUME 10.3 fL (9.0-12.2); MONOCYTES # (AUTO) 0.6 X 10^3 (0.0-1.0); MONOCYTES % (AUTO) 6 % (0-12); NEUTROPHILS # (AUTO) 6.3 X 10^3 (1.8-7.8); NEUTROPHILS % (AUTO) 61 % (42-75); PLATELET COUNT 258 10^3/uL (130-400)
[2021-06-29 15:06] LABS: BACTERIA,URINE NEGATIVE /HPF; SQUAMOUS EPITHELIAL CELL,UR RARE /HPF
[2021-06-29 15:14] LABS: ALANINE AMINOTRANSFERASE 20 U/L (0-55); ALKALINE PHOSPHATASE 101 U/L (40-136); BILIRUBIN,TOTAL 0.5 MG/DL (0.1-1.0); BUN/CREATININE RATIO 16; CARBON DIOXIDE 25 MMOL/L (21-32); CHLORIDE 104 MMOL/L (98-107); GFR ESTIMATED 87; GLUCOSE 98 MG/DL (70-105); SODIUM 140 MMOL/L (135-145); TOTAL PROTEIN 7.7 GM/DL (6.4-8.2)
[2021-06-29 15:15] LABS: AMPHETAMINE SCREEN, URINE NEGATIVE (NEGATIVE); BARBITURATE SCREEN URINE NEGATIVE (NEGATIVE); BENZODIAZEPINES SCREEN URINE NEGATIVE (NEGATIVE); CANNABINOID SCREEN, URINE NEGATIVE (NEGATIVE); COCAINE SCREEN URINE NEGATIVE (NEGATIVE); METHADONE STAT NEGATIVE (NEGATIVE); METHAMPHETAMINE SCREEN URINE S NEGATIVE (NEGATIVE); OPIATE SCREEN URINE NEGATIVE (NEGATIVE); OXYCODONE STAT NEGATIVE (NEGATIVE); PROPOXYPHENE STAT NEGATIVE (NEGATIVE); TRICYCLIC ANTIDEPRESSANTS SCRE NEGATIVE (NEGATIVE)
[2021-06-29 15:15] LABS: ACETAMINOPHEN < 10 UG/ML (10-30); ALBUMIN 4.5 GM/DL (3.2-4.5); SALICYLATE < 0.3 MG/DL (5.0-20.0)
== END 2021-06-29 20:03 | disposition home or self-care (01) ==
LOC: EDUNIT# 14:08 → ER FS 14:09
DX: R45.851 Suicidal ideations (principal); I10 Essential (primary) hypertension; Z87.820 Personal history of traumatic brain injury
CPT/HCPCS: 36415; 80053; 80306; 81000; 85025; 93005; 99283; G0480 ×3; 80320; 80329

== ENCOUNTER 2021-08-13 21:43 | Emergency (ER) | payer SELFPAY ==
[~2021-08-13] VITALS: Ht 178 cm; Wt 68.0 kg
[~2021-08-13 21:43] MED LIST changes: +CYCL10TA25 PO; -CYCL10TA9 PO; +DICY20TA PO; -DICY20TA10 PO
[2021-08-13] MEDS ORDERED: FAMOTIDINE 20MG/2ML IV (PEPCID) IVP ONE (23:45)
[2021-08-14 00:04] LABS: BASOPHILS % (AUTO) 0 % (0-10); EOSINOPHILS # (AUTO) 0.2 10^3/uL (0.0-0.3); EOSINOPHILS % (AUTO) 2 % (0-10); HEMATOCRIT 42 % (40-54); HEMOGLOBIN 14.3 g/dL (13.3-17.7); LYMPHOCYTES # (AUTO) 3.2 10^3/uL (1.0-4.0); LYMPHOCYTES % (AUTO) 34 % (12-44); MEAN CORPUSCULAR HEMOGLOBIN 30 pg (25-34); MEAN CORPUSCULAR HGB CONC 34 g/dL (32-36); MEAN CORPUSCULAR VOLUME 88 fL (80-99); MONOCYTES # (AUTO) 0.8 10^3/uL (0.0-1.0); MONOCYTES % (AUTO) 8 % (0-12); NEUTROPHILS # (AUTO) 5.2 10^3/uL (1.8-7.8); NEUTROPHILS % (AUTO) 56 % (42-75); PLATELET COUNT 287 10^3/uL (130-400); WHITE BLOOD COUNT 9.3 10^3/uL (4.3-11.0)
[2021-08-14 00:19] LABS: PROTHROMBIN TIME PATIENT 13.5 SEC (12.2-14.7)
[2021-08-14 00:20] LABS: CHLORIDE 103 MMOL/L (98-107); SODIUM 140 MMOL/L (135-145)
[2021-08-14 00:21] LABS: CALCIUM 8.8 MG/DL (8.5-10.1)
[2021-08-14 00:23] LABS: GLUCOSE 88 MG/DL (70-105); TOTAL PROTEIN 7.6 GM/DL (6.4-8.2)
[2021-08-14 00:24] LABS: BILIRUBIN,TOTAL 0.5 MG/DL (0.1-1.0); CARBON DIOXIDE 26 MMOL/L (21-32)
[2021-08-14 00:26] LABS: ALKALINE PHOSPHATASE 107 U/L (40-136); CREATININE SERUM 1.12 MG/DL (0.60-1.30); GFR ESTIMATED 76
[2021-08-14 00:27] LABS: BUN/CREATININE RATIO 12
[2021-08-14 00:29] LABS: ALANINE AMINOTRANSFERASE 41 U/L (0-55)
[2021-08-14 00:30] LABS: BILIRUBIN,URINE NEGATIVE (NEGATIVE); CLARITY,URINE CLEAR; COLOR,URINE YELLOW; GLUCOSE, URINE (UA) NEGATIVE (NEGATIVE); KETONES,URINE NEGATIVE (NEGATIVE); LEUKOCYTE ESTERASE ,URINE NEGATIVE (NEGATIVE); NITRITE,URINE NEGATIVE (NEGATIVE); PH,URINE 6.5 (5-9); PROTEIN,URINE NEGATIVE (NEGATIVE)
[2021-08-14 00:30] LABS: LIPASE 45 U/L (8-78)
[2021-08-14 00:40] LABS: BACTERIA,URINE NEGATIVE /HPF; RBC,URINE RARE /HPF
--- NOTE | 2021-08-14 01:16 | ED General ---
General Chief Complaint: COVID19 Suspect/Confirmed Stated Complaint: VOMITING BLOOD, HEADACHE, CHILLS Nursing Triage Note: PT AMB TO ER WITH C/O COUGH, FEVER, AND COVID EXPOSURE LAST WEEK FROM [facility] Source of Information: Patient Exam Limitations: No Limitations History of Present Illness Date Seen by Provider: Aug 13, 2021 Time Seen by Provider: 22:58 Initial Comments This 31 year old man presents to the ER with complaints of flu-like symptoms including cough, nausea, epigastri pain, myalgia, etc. He had a positive COVID exposure last week and has been symptomatic for a couple of days. On Augmentin for dental infection. Reports vomited a significant amount of bright red blood earlier this evening. He is not on any blood thinning medications. Allergies and Home Medications Allergies Coded Allergies: No Known Drug Allergies (Unverified , 05/01/17) Patient Home Medication List Home Medication List Reviewed: Yes Amoxicillin/Potassium Clav (Augmentin 875-125 Tablet) 1 Each Tablet, 1 EACH PO BID Prescribed by: ALEYDA VITAL on 06/02/212020 Amoxicillin/Potassium Clav (Augmentin 875-125 Tablet) 1 Each Tablet, 1 EACH PO BID Prescribed by: LIZZETH LINDSEY on 06/09/212353 Famotidine (Pepcid) 20 Mg Tablet, 20 MG PO BID Prescribed by: ALBAN GARNETT on 05/12/21 05 Hydrocodone/Acetaminophen (Hydrocodone-Acetamin 5-325 mg) 1 Each Tablet, 1 TAB PO Q6H PRN for PAIN-MODERATE (5-7) Prescribed by: LIZZETH LINDSEY on 06/09/212354 Ondansetron (Ondansetron Odt) 4 Mg Tab.rapdis, 4 MG SL Q4H PRN for NAUSEA/VOMITING Prescribed by: ALBAN GARNETT on 05/12/21 0536 Review of Systems Review of Systems Constitutional: see HPI EENTM: no symptoms reported Respiratory: see HPI Cardiovascular: no symptoms reported Gastrointestinal: see HPI Genitourinary: no symptoms reported Musculoskeletal: see HPI Skin: no symptoms reported Psychiatric/Neurological: No Symptoms Reported Hematologic/Lymphatic: No Symptoms Reported Past Pyoowbp-Jyqmyt-Ttmxwy Hx Patient Social History Tobacco Use?: No Substance use?: No Alcohol Use?: No Pt feels they are or have been: No Immunizations Up To Date Influenza Vaccine Up-to-Date: No; Not Current Seasonal Allergies Seasonal Allergies: No Past Medical History Surgery/Hospitalization HX: CHOLECYSTECTOMY Surgeries: Yes Gallbladder Respiratory: No Cardiac: Yes Hypertension Neurological: Yes Headaches /Migraines, Traumatic Brain Injury Reproductive Disorders: No Genitourinary: No Gastrointestinal: No Musculoskeletal: Yes Degenerate Disk Disease Endocrine: No HEENT: No Cancer: No Psychosocial: No Integumentary: No Psoriasis Blood Disorders: No Adverse Reaction/Blood Tranf: No Family Medical History Heart Disease, CAD Under 55 Years Old, Hypertension, Migraines, Stroke Physical Exam Vital Signs Capillary Refill : Height, Weight, BMI Height: 5'10.00" Weight: 152lbs. oz. [id number]; 21.00 BMI Method:Stated General Appearance: No Apparent Distress, WD/WN HEENT: PERRL/EOMI, Normal ENT Inspection, Pharynx Normal Neck: Normal Inspection Respiratory: Lungs Clear, Normal Breath Sounds, No Accessory Muscle Use Cardiovascular: Regular Rate, Rhythm, No Edema, No Murmur Gastrointestinal: Normal Bowel Sounds, Soft; No Distended; Tenderness (epigastric) Extremity: Normal Inspection, Non Tender, No Pedal Edema Neurologic/Psychiatric: Alert, Oriented x3, No Motor/Sensory Deficits, Normal Mood/Affect Skin: Normal Color, Warm/Dry Procedures/Interventions Suture Size: 3-0 Progress/Results/Core Measures Suspected Sepsis SIRS Temperature: Pulse: 81 Respiratory Rate: 18 Laboratory Tests 08/13/21 23:55: White Blood Count 9.3 Blood Pressure 132 /103 Mean: 113 Laboratory Tests 08/13/21 23:55: Creatinine 1.12, INR Comment 1.0, Platelet Count 287, Total Bilirubin 0.5 Results/Orders Lab Results Laboratory Tests Test 08/13/21 22:50 08/13/21 23:55 08/14/21 00:20 Range/Units Influenza Type A (RT-PCR) Not Detected Not Detecte Influenza Type B (RT-PCR) Not Detected Not Detecte SARS-CoV-2 RNA (RT-PCR) Detected H Not Detecte White Blood Count 9.3 4.3-11.0 10^3/uL Red Blood Count 4.77 4.30-5.52 10^6/uL Hemoglobin 14.3 13.3-17.7 g/dL Hematocrit 42 40-54 % Mean Corpuscular Volume 88 80-99 fL Mean Corpuscular Hemoglobin 30 25-34 pg Mean Corpuscular Hemoglobin Concent 34 32-36 g/dL Red Cell Distribution Width 11.7 10.0-14.5 % Platelet Count 287 130-400 10^3/uL Mean Platelet Volume 10.0 9.0-12.2 fL Immature Granulocyte % (Auto) 0 % Neutrophils (%) (Auto) 56 42-75 % Lymphocytes (%) (Auto) 34 12-44 % Monocytes (%) (Auto) 8 0-12 % Eosinophils (%) (Auto) 2 0-10 % Basophils (%) (Auto) 0 0-10 % Neutrophils # (Auto) 5.2 1.8-7.8 10^3/uL Lymphocytes # (Auto) 3.2 1.0-4.0 10^3/uL Monocytes # (Auto) 0.8 0.0-1.0 10^3/uL Eosinophils # (Auto) 0.2 0.0-0.3 10^3/uL Basophils # (Auto) 0.0 0.0-0.1 10^3/uL Immature Granulocyte # (Auto) 0.0 0.0-0.1 10^3/uL Prothrombin Time 13.5 12.2-14.7 SEC INR Comment 1.0 0.8-1.4 Activated Partial Thromboplast Time 36 H 24-35 SEC Sodium Level 140 135-145 MMOL/L Potassium Level 4.0 3.6-5.0 MMOL/L Chloride Level 103 98-107 MMOL/L Carbon Dioxide Level 26 21-32 MMOL/L Anion Gap 11 5-14 MMOL/L Blood Urea Nitrogen 13 7-18 MG/DL Creatinine 1.12 0.60-1.30 MG/DL Estimat Glomerular Filtration Rate 76 BUN/Creatinine Ratio 12 Glucose Level 88 70-105 MG/DL Calcium Level 8.8 8.5-10.1 MG/DL Corrected Calcium 8.8 8.5-10.1 MG/DL Total Bilirubin 0.5 0.1-1.0 MG/DL Aspartate Amino Transf (AST/SGOT) 22 5-34 U/L Alanine Aminotransferase (ALT/SGPT) 41 0-55 U/L Alkaline Phosphatase 107 40-136 U/L C-Reactive Protein High Sensitivity 0.30 0.00-0.50 MG/DL Total Protein 7.6 6.4-8.2 GM/DL Albumin 4.0 3.2-4.5 GM/DL Lipase 45 8-78 U/L Serum Alcohol < 10 <10 MG/DL Urine Color YELLOW Urine Clarity CLEAR Urine pH 6.5 5-9 Urine Specific Marceline 1.020 1.016-1.022 Urine Protein NEGATIVE NEGATIVE Urine Glucose (UA) NEGATIVE NEGATIVE Urine Ketones NEGATIVE NEGATIVE Urine Nitrite NEGATIVE NEGATIVE Urine Bilirubin NEGATIVE NEGATIVE Urine Urobilinogen 1.0 < = 1.0 MG/DL Urine Leukocyte Esterase NEGATIVE NEGATIVE Urine RBC (Auto) NEGATIVE NEGATIVE Urine RBC RARE /HPF Urine WBC NONE /HPF Urine Squamous Epithelial Cells 2-5 /HPF Urine Crystals NONE /LPF Urine Bacteria NEGATIVE /HPF Urine Casts NONE /LPF Urine Mucus SMALL H /LPF Urine Culture Indicated NO My Orders Orders - ALBAN HILLMAN MD Covid 19 Inhouse Test (08/13/21 22:58) Influenza A And B By Pcr (08/13/21 22:58) Ed Iv/Invasive Line Start (08/13/21 23:35) Alcohol (08/13/21 23:35) Cbc With Automated Diff (08/13/21 23:35) Comprehensive Metabolic Panel (08/13/21 23:35) Hs C Reactive Protein (08/13/21 23:35) Lipase (08/13/21 23:35) Protime With Inr (08/13/21 23:35) Partial Thromboplastin Time (08/13/21 23:35) Ua Culture If Indicated (08/13/21 23:35) Chest 1 View, Ap/Pa Only (08/13/21 23:35) Famotidine Injection (Pepcid Injection) (08/13/21 23:45) Medications Given in ED Vital Signs/I&O Capillary Refill : Blood Pressure Mean: 113 Progress Note : Progress Note Work-up unremarkable except positive for COVID 19. See discharge instructions for further discussion. Diagnostic Imaging Diagonstic Imaging: Xray Plain Films/CT/US/NM/MRI: chest Comments NAME: GISELE VIRGEN [facility] REC#: [id number] PT STATUS: DEP ER : 1990 PHYSICIAN: ALBAN HILLMAN MD ADMIT DATE: 08/13/21/ER Signed Date of Exam:08/13/21 CHEST 1 VIEW, AP/PA ONLY EXAMINATION: Chest 1 view HISTORY: Cough COMPARISON: 05/12/2021 FINDINGS: The lungs are clear without edema or pneumonia. No pleural effusion or pneumothorax. Heart size is normal. IMPRESSION: 1. Clear lungs. Dictated by: Dictated on workstation # [id number] Dict: 08/14/21 0530 Trans: 08/14/21 0654 [facility] [id number] Interpreted by: MANE HOLDER MD Electronically signed by: MANE HOLDER MD 08/14/21 0654 Departure Impression Primary Impression: COVID-19 Additional Impressions: Nausea & vomiting Qualified Codes: R11.2 - Nausea with vomiting, unspecified Epigastric pain Disposition: HOME, SELF-CARE Condition: Improved Departure-Patient Inst. Decision time for Depature: 01:00 Referrals: TIFFANI MAN MD (PCP/Family) Primary Care Physician Patient Instructions: COVID-19 ED Add. Discharge Instructions: Complete a minimum of a 10-day quarantine and do not leave quarantine until your symptoms have resolved or you are otherwise released. Drink plenty of noncarbonated clear liquids. Use the Zofran as previously prescribed for nausea and vomiting. Take an antacid medication such as omeprazole 20 mg twice daily or Pepcid (famotidine) 20 mg twice daily for the next month to protect your stomach. Call with questions or concerns. Return to the ER if you have worsening symptoms. All discharge instructions reviewed with patient and/or family. Voiced understanding. Copy Copies To 1: TIFFANI MAN MD, JOSHUA T MD Aug 14, 2021 01:16
[2021-08-14 01:35] VITALS: BP 147/93
--- NOTE | 2021-08-14 05:33 | Diagnostic Imaging Report ---
EXAMINATION: Chest 1 view HISTORY: Cough COMPARISON: 05/12/2021 FINDINGS: The lungs are clear without edema or pneumonia. No pleural effusion or pneumothorax. Heart size is normal. IMPRESSION: 1. Clear lungs. Dictated by: Dictated on workstation # [id number]
== END 2021-08-14 00:36 | disposition home or self-care (01) ==
LOC: EDUNIT# 21:43 → ER 21:48
DX: U07.1 COVID-19 (principal); I10 Essential (primary) hypertension; L40.9 Psoriasis, unspecified
CPT/HCPCS: 71045; 80053; 81000; 83690; 85025; 85610; 85730; 86141; 87636; 96374; 99284; G0480; 36415; 80320

== ENCOUNTER 2021-09-11 00:43 | Emergency (ER) | payer SELFPAY ==
[~2021-09-11] VITALS: Ht 178 cm; Wt 66.0 kg
[2021-09-11 01:20] VITALS: BP 147/99
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
[2021-09-11] MEDS ORDERED: NAPR500T8 PO (02:14)
[2021-09-11] MEDS ORDERED: LIDO20SO23 MM (02:14)
[2021-09-11] MEDS ORDERED: OSLT75C PO (02:14)
[2021-09-11] MEDS ORDERED: RX-NAPROXEN (NAPROSYN) 250 MG TAB PPK#4 PO STA (02:14)
[2021-09-11] MEDS ORDERED: LIDOCAINE 2% VISCOUS 15 ML UDC MM ONE (02:15)
[2021-09-11] MEDS ORDERED: OSELTAMIVIR 75 MG (TAMIFLU) CAPSULE PO ONE (02:15)
== END 2021-09-11 02:42 | disposition home or self-care (01) ==
LOC: EDUNIT# 00:43 → ER 00:44
DX: J10.1 Influenza due to other identified influenza virus with other respiratory manifestations (principal); K02.9 Dental caries, unspecified; I10 Essential (primary) hypertension; G89.29 Other chronic pain; M54.9 Dorsalgia, unspecified; Z87.820 Personal history of traumatic brain injury; Z79.891 Long term (current) use of opiate analgesic
CPT/HCPCS: 87430; 87804; 99283

== ENCOUNTER 2022-02-23 12:37 | Emergency (ER) | payer SELFPAY ==
[~2022-02-23] VITALS: Ht 177.8 cm; Wt 65.8 kg
[~2022-02-23 12:37] MED LIST changes: +LIDO20SO23 MM; +NAPR500T8 PO; +OSLT75C PO; +TMSL.4C PO
[2022-02-23] MEDS ORDERED: LACTATED RINGERS 1,000 ML IV ONE (14:00)
[2022-02-23] MEDS ORDERED: ONDANSETRON 4 MG/2 ML (SDV) Z0FRAN IVP ONE (14:00)
[2022-02-23 14:11] LABS: BASOPHILS % (AUTO) 0 % (0-10); EOSINOPHILS # (AUTO) 0.2 10^3/uL (0.0-0.3); EOSINOPHILS % (AUTO) 2 % (0-10); HEMATOCRIT 45 % (40-54); HEMOGLOBIN 15.5 g/dL (13.3-17.7); LYMPHOCYTES # (AUTO) 1.7 10^3/uL (1.0-4.0); LYMPHOCYTES % (AUTO) 14 % (12-44); MEAN CORPUSCULAR HEMOGLOBIN 30 pg (25-34); MEAN CORPUSCULAR HGB CONC 35 g/dL (32-36); MEAN CORPUSCULAR VOLUME 87 fL (80-99); MEAN PLATELET VOLUME 9.9 fL (9.0-12.2); MONOCYTES # (AUTO) 0.8 10^3/uL (0.0-1.0); MONOCYTES % (AUTO) 7 % (0-12); NEUTROPHILS # (AUTO) 9.4 10^3/uL (1.8-7.8); NEUTROPHILS % (AUTO) 78 % (42-75); PLATELET COUNT 207 10^3/uL (130-400); WHITE BLOOD COUNT 12.1 10^3/uL (4.3-11.0)
[2022-02-23 14:22] LABS: ALBUMIN 4.1 GM/DL (3.2-4.5); POTASSIUM 4.5 MMOL/L (3.6-5.0)
[2022-02-23 14:25] LABS: TOTAL PROTEIN 7.6 GM/DL (6.4-8.2)
[2022-02-23 14:26] LABS: BILIRUBIN,TOTAL 0.9 MG/DL (0.1-1.0)
[2022-02-23 14:28] LABS: CREATININE SERUM 1.09 MG/DL (0.60-1.30)
--- NOTE | 2022-02-23 15:10 | Diagnostic Imaging Report ---
INDICATION: Cough, Fever COMPARISON: 11/27/2021 FINDINGS: Frontal and lateral views of the chest demonstrate normal heart size and pulmonary vascularity. The lungs are clear. There are no signs of infiltrate, pleural effusions or pneumothoraces. The visualized osseous structures show no acute abnormalities. IMPRESSION: 1. No acute process. No signs of infiltrates, effusions or pneumothoraces. Dictated by: Dictated on workstation # [id number]
[2022-02-23] MEDS ORDERED: KETOROLAC 30 MG/ML VIAL IVP ONE (15:30)
--- NOTE | 2022-02-23 15:35 | Diagnostic Imaging Report ---
INDICATION: Hematuria. Ureteral calculus. COMPARISON: CT dated 11/27/2021 FINDINGS: Single frontal supine radiograph view of the abdomen was obtained. Small bowel loops are nondistended. There is no large collection of free intraperitoneal air. Extraosseous calcification is seen projecting over the right hemipelvis. This, however shown to represent phleboliths on prior CT. No other unexpected extraosseous calcifications or radiopaque foreign bodies are seen. Osseous structures show no gross acute abnormalities. IMPRESSION: 1. Nonobstructed small bowel gas pattern. Dictated by: Dictated on workstation # [id number]
[2022-02-23 15:46] LABS: BILIRUBIN,URINE NEGATIVE (NEGATIVE); CLARITY,URINE CLEAR; COLOR,URINE YELLOW; GLUCOSE, URINE (UA) NEGATIVE (NEGATIVE); KETONES,URINE NEGATIVE (NEGATIVE); LEUKOCYTE ESTERASE ,URINE NEGATIVE (NEGATIVE); NITRITE,URINE NEGATIVE (NEGATIVE); PROTEIN,URINE NEGATIVE (NEGATIVE)
[2022-02-23 16:04] LABS: BACTERIA,URINE TRACE /HPF; SQUAMOUS EPITHELIAL CELL,UR RARE /HPF; WBC,URINE RARE /HPF
[2022-02-23] MEDS ORDERED: ONDA4TAB11 SL (16:27)
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
[2022-02-23 16:33] VITALS: BP 120/87
== END 2022-02-23 16:34 | disposition home or self-care (01) ==
LOC: EDUNIT# 12:37 → ER 12:40
DX: R11.2 Nausea with vomiting, unspecified (principal); R50.9 Fever, unspecified; J02.9 Acute pharyngitis, unspecified; J34.89 Other specified disorders of nose and nasal sinuses; Z87.442 Personal history of urinary calculi; Z87.01 Personal history of pneumonia (recurrent); Z20.822 Contact with and (suspected) exposure to COVID-19; Z28.310 Unvaccinated for COVID-19
CPT/HCPCS: 36415; 71046; 74018; 80053; 81000; 85025; 85379; 86141; 86308; 87636

== ENCOUNTER 2022-03-13 14:32 | Emergency (ER) | payer SELFPAY ==
[~2022-03-13] VITALS: Ht 177.8 cm; Wt 68.0 kg
[2022-03-13] MEDS ORDERED: NS IV 1000 ML 1,000 ML IV STA (14:49)
[2022-03-13] MEDS ORDERED: ONDANSETRON 4 MG/2 ML (SDV) Z0FRAN IVP ONE (15:00)
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
[2022-03-13 15:02] LABS: BASOPHILS % (AUTO) 1 % (0-10); EOSINOPHILS # (AUTO) 0.1 10^3/uL (0.0-0.3); EOSINOPHILS % (AUTO) 2 % (0-10); HEMATOCRIT 45 % (40-54); HEMOGLOBIN 15.5 g/dL (13.3-17.7); LYMPHOCYTES # (AUTO) 1.9 10^3/uL (1.0-4.0); LYMPHOCYTES % (AUTO) 24 % (12-44); MEAN CORPUSCULAR HEMOGLOBIN 30 pg (25-34); MEAN CORPUSCULAR HGB CONC 34 g/dL (32-36); MEAN CORPUSCULAR VOLUME 86 fL (80-99); MEAN PLATELET VOLUME 10.2 fL (9.0-12.2); MONOCYTES # (AUTO) 0.5 10^3/uL (0.0-1.0); MONOCYTES % (AUTO) 6 % (0-12); NEUTROPHILS # (AUTO) 5.2 10^3/uL (1.8-7.8); NEUTROPHILS % (AUTO) 67 % (42-75); PLATELET COUNT 264 10^3/uL (130-400); WHITE BLOOD COUNT 7.7 10^3/uL (4.3-11.0)
[2022-03-13 15:04] LABS: ALBUMIN 4.2 GM/DL (3.2-4.5)
[2022-03-13 15:05] LABS: CHLORIDE 105 MMOL/L (98-107); POTASSIUM 4.2 MMOL/L (3.6-5.0); SODIUM 139 MMOL/L (135-145)
[2022-03-13 15:06] LABS: CALCIUM 9.2 MG/DL (8.5-10.1)
[2022-03-13 15:07] LABS: GLUCOSE 95 MG/DL (70-105); TOTAL PROTEIN 7.9 GM/DL (6.4-8.2)
[2022-03-13 15:08] LABS: CARBON DIOXIDE 24 MMOL/L (21-32)
[2022-03-13 15:09] LABS: BILIRUBIN,TOTAL 0.7 MG/DL (0.1-1.0)
[2022-03-13 15:10] LABS: ALKALINE PHOSPHATASE 97 U/L (40-136)
[2022-03-13 15:11] LABS: CREATININE SERUM 1.05 MG/DL (0.60-1.30); GFR ESTIMATED 97
[2022-03-13 15:12] LABS: BUN/CREATININE RATIO 13
[2022-03-13 15:14] LABS: ALANINE AMINOTRANSFERASE 26 U/L (0-55)
--- NOTE | 2022-03-13 15:44 | Diagnostic Imaging Report ---
INDICATION: Passed out twice and hit head. Pain. EXAMINATION: CT brain and CT cervical spine on 03/13/2022. COMPARISON: 06/09/2021. FINDINGS: BRAIN: There is no hemorrhage or infarct. No mass, mass effect, or midline shift. No hydrocephalus. There is partial opacification of the visualized sinuses, especially the maxillary sinuses. No air-fluid levels. Mastoid air cells are clear. IMPRESSION: Sinus disease with no acute intracranial process. CERVICAL SPINE: There is normal height and alignment of the vertebral bodies. Anterior spurring is noted throughout the cervical spine with no significant intervertebral disc space narrowing at any level. No fractures or subluxations are appreciated. Lung apices are clear. Prevertebral soft tissues are unremarkable. IMPRESSION: Multilevel diffuse degenerative findings with no superimposed acute process. Dictated by: Dictated on workstation # [id number]
[2022-03-13 17:56] VITALS: BP 100/75
== END 2022-03-13 17:56 | disposition home or self-care (01) ==
LOC: EDUNIT# 14:32 → ER 14:40
DX: S09.90XA Unspecified injury of head, initial encounter (principal); R55 Syncope and collapse; R20.2 Paresthesia of skin; Z28.310 Unvaccinated for COVID-19; W22.8XXA Striking against or struck by other objects, initial encounter
CPT/HCPCS: 36415; 70450; 72125; 80053; 84484; 85025; 86141; 93005

== ENCOUNTER 2022-03-31 17:46 | Emergency (ER) | payer SELFPAY ==
[~2022-03-31] VITALS: Ht 177.8 cm; Wt 66.1 kg
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
[2022-03-31 18:19] LABS: BASOPHILS % (AUTO) 0 % (0-10); EOSINOPHILS # (AUTO) 0.1 10^3/uL (0.0-0.3); EOSINOPHILS % (AUTO) 1 % (0-10); HEMATOCRIT 45 % (40-54); HEMOGLOBIN 15.7 g/dL (13.3-17.7); LYMPHOCYTES # (AUTO) 2.2 10^3/uL (1.0-4.0); LYMPHOCYTES % (AUTO) 34 % (12-44); MEAN CORPUSCULAR HEMOGLOBIN 30 pg (25-34); MEAN CORPUSCULAR HGB CONC 35 g/dL (32-36); MEAN CORPUSCULAR VOLUME 85 fL (80-99); MEAN PLATELET VOLUME 9.9 fL (9.0-12.2); MONOCYTES # (AUTO) 0.4 10^3/uL (0.0-1.0); MONOCYTES % (AUTO) 6 % (0-12); NEUTROPHILS # (AUTO) 3.9 10^3/uL (1.8-7.8); NEUTROPHILS % (AUTO) 59 % (42-75); PLATELET COUNT 234 10^3/uL (130-400); WHITE BLOOD COUNT 6.6 10^3/uL (4.3-11.0)
[2022-03-31 18:39] LABS: ERYTHROCYTE SEDIMENTATION RATE 15 MM/HR (0-15)
--- NOTE | 2022-03-31 18:40 | Diagnostic Imaging Report ---
PROCEDURE: CT head and CT cervical spine without contrast. TECHNIQUE: Multiple contiguous axial images were obtained through the brain and cervical spine without the use of intravenous contrast. Sagittal and coronal reformations through the cervical spine were then performed. Auto Exposure Controls were utilized during the CT exam to meet ALARA standards for radiation dose reduction. INDICATION: Right arm numbness. COMPARISON: CT head and cervical spine without contrast 03/13/2022. FINDINGS: CT HEAD: No intracranial hemorrhage, mass effect, hydrocephalus or extra-axial fluid collections. Osseous structures are intact. Visualized paranasal sinuses and mastoids are clear. CT cervical spine: Normal alignment. Vertebral body heights are preserved. Stable spondylotic changes at C3-C7. No fractures. No high-grade spinal canal stenosis by CT. Visualized paravertebral soft tissues are unremarkable. Lung apices are clear. IMPRESSION: 1. No acute intracranial or cervical spine CT findings. 2. Stable mild to moderate spondylotic changes at C3-C7. No evidence of high-grade spinal canal stenosis. Dictated by: Dictated on workstation # [id number]
--- NOTE | 2022-03-31 18:42 | Diagnostic Imaging Report ---
PROCEDURE: CT right upper extremity without contrast. TECHNIQUE: Multiple contiguous axial images were obtained through the right upper extremity without the use of intravenous contrast. Sagittal and coronal reformations were then performed. Auto Exposure Controls were utilized during the CT exam to meet ALARA standards for radiation dose reduction. INDICATION: Trauma with right upper extremity pain. FINDINGS: Right shoulder appears to be intact. There is no evidence of fracture or malalignment. There is no evidence of hematoma in the shoulder or upper arm region. Visualized portions of the elbow are also unremarkable. There is no organized fluid collection. No bone erosion is seen. There is no evidence of radiopaque foreign object. IMPRESSION: No acute abnormality is detected. Dictated by: Dictated on workstation # [id number]
[2022-03-31 18:43] LABS: ALBUMIN 4.3 GM/DL (3.2-4.5); BILIRUBIN,TOTAL 0.5 MG/DL (0.1-1.0); CALCIUM 9.3 MG/DL (8.5-10.1); CREATININE SERUM 1.11 MG/DL (0.60-1.30); POTASSIUM 4.2 MMOL/L (3.6-5.0); TOTAL PROTEIN 7.4 GM/DL (6.4-8.2)
[2022-03-31] MEDS ORDERED: METH-732 PO (18:55)
[2022-03-31] MEDS ORDERED: MELO15TA39 PO (18:55)
[2022-03-31 19:18] VITALS: BP 134/84
== END 2022-03-31 19:18 | disposition home or self-care (01) ==
LOC: EDUNIT# 17:46 → ER 17:49
DX: M25.511 Pain in right shoulder (principal); Z87.828 Personal history of other (healed) physical injury and trauma; Z28.310 Unvaccinated for COVID-19
CPT/HCPCS: 36415; 70450; 72125; 73200; 80053; 85025; 85652; 86141; 93005; 93041

== ENCOUNTER 2022-05-01 19:39 | Emergency (ER) | payer BC ==
[~2022-05-01 19:39] MED LIST changes: +MELO15TA39 PO; +METH-732 PO
[2022-05-01] MEDS ORDERED: LACTATED RINGERS 1,000 ML IV ONE (19:45)
[2022-05-01] MEDS ORDERED: KETOROLAC 30 MG/ML VIAL IVP STA (19:51)
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
[2022-05-01] MEDS ORDERED: ONDANSETRON 4 MG/2 ML (SDV) Z0FRAN IVP ONE (20:00)
[2022-05-01 20:11] LABS: BASOPHILS % (AUTO) 0 % (0-10); EOSINOPHILS # (AUTO) 0.1 10^3/uL (0.0-0.3); EOSINOPHILS % (AUTO) 2 % (0-10); HEMATOCRIT 45 % (40-54); HEMOGLOBIN 15.7 g/dL (13.3-17.7); LYMPHOCYTES # (AUTO) 1.7 10^3/uL (1.0-4.0); LYMPHOCYTES % (AUTO) 22 % (12-44); MEAN CORPUSCULAR HEMOGLOBIN 30 pg (25-34); MEAN CORPUSCULAR HGB CONC 35 g/dL (32-36); MEAN CORPUSCULAR VOLUME 85 fL (80-99); MEAN PLATELET VOLUME 10.2 fL (9.0-12.2); MONOCYTES # (AUTO) 0.8 10^3/uL (0.0-1.0); MONOCYTES % (AUTO) 11 % (0-12); NEUTROPHILS # (AUTO) 4.9 10^3/uL (1.8-7.8); NEUTROPHILS % (AUTO) 65 % (42-75); PLATELET COUNT 258 10^3/uL (130-400); WHITE BLOOD COUNT 7.6 10^3/uL (4.3-11.0)
[2022-05-01 20:13] LABS: BILIRUBIN,URINE NEGATIVE (NEGATIVE); CLARITY,URINE CLEAR; COLOR,URINE YELLOW; GLUCOSE, URINE (UA) NEGATIVE (NEGATIVE); KETONES,URINE NEGATIVE (NEGATIVE); NITRITE,URINE NEGATIVE (NEGATIVE); PROTEIN,URINE NEGATIVE (NEGATIVE)
[2022-05-01 20:14] LABS: LEUKOCYTE ESTERASE ,URINE NEGATIVE (NEGATIVE)
[2022-05-01 20:15] LABS: BACTERIA,URINE NEGATIVE /HPF; WBC,URINE RARE /HPF
[2022-05-01 20:18] LABS: ALBUMIN 4.5 GM/DL (3.2-4.5); CHLORIDE 102 MMOL/L (98-107); SODIUM 140 MMOL/L (135-145)
[2022-05-01 20:19] LABS: CALCIUM 9.2 MG/DL (8.5-10.1)
[2022-05-01 20:20] LABS: GLUCOSE 86 MG/DL (70-105); TOTAL PROTEIN 8.5 GM/DL (6.4-8.2)
[2022-05-01 20:21] LABS: CARBON DIOXIDE 23 MMOL/L (21-32)
[2022-05-01 20:22] LABS: AMPHETAMINE SCREEN, URINE NEGATIVE (NEGATIVE); BARBITURATE SCREEN URINE NEGATIVE (NEGATIVE); BENZODIAZEPINES SCREEN URINE NEGATIVE (NEGATIVE); CANNABINOID SCREEN, URINE NEGATIVE (NEGATIVE); COCAINE SCREEN URINE NEGATIVE (NEGATIVE); METHADONE STAT NEGATIVE (NEGATIVE); OPIATE SCREEN URINE NEGATIVE (NEGATIVE); OXYCODONE STAT NEGATIVE (NEGATIVE); PROPOXYPHENE STAT NEGATIVE (NEGATIVE); TRICYCLIC ANTIDEPRESSANTS SCRE NEGATIVE (NEGATIVE)
[2022-05-01 20:22] LABS: BILIRUBIN,TOTAL 0.8 MG/DL (0.1-1.0)
[2022-05-01 20:24] LABS: ALKALINE PHOSPHATASE 106 U/L (40-136); CREATININE SERUM 1.01 MG/DL (0.60-1.30); GFR ESTIMATED 101
[2022-05-01 20:25] LABS: BUN/CREATININE RATIO 15
[2022-05-01 20:27] LABS: ALANINE AMINOTRANSFERASE 36 U/L (0-55)
--- NOTE | 2022-05-01 20:40 | Diagnostic Imaging Report ---
INDICATION: Abdominal pain. Abdominal film obtained at 8:38 p.m. and compared to 02/23/2022. FINDINGS: There are surgical clips in the right upper quadrant. The abdominal bowel gas pattern is unremarkable. There is no overt obstruction or ileus. There are no suspicious calcifications. There is a phlebolith in the right side of the pelvis. IMPRESSION: Unremarkable abdominal film. Dictated by: Dictated on workstation # [id number]
--- NOTE | 2022-05-01 20:41 | Diagnostic Imaging Report ---
INDICATION: Flank pain. TECHNIQUE: Multiple contiguous axial images were obtained through the abdomen and pelvis without the use of intravenous contrast. Auto Exposure Controls were utilized during the CT exam to meet ALARA standards for radiation dose reduction. Comparison made to 11/27/2021. FINDINGS: The visualized portions of the lung bases are clear. There were no pleural fluid collections. There is no free intraperitoneal air. Bony windows are unremarkable. The liver shows no focal lesion. Gallbladder is surgically absent. The spleen, adrenals, and pancreas are normal. The kidneys bilaterally are unremarkable. There is no retroperitoneal mass or adenopathy. There is no ascites or abnormal fluid collection. Visualized bowel loops appear unremarkable. There is no urinary tract stone or hydronephrosis. IMPRESSION: Negative CT of the abdomen and pelvis. Evidence of previous cholecystectomy. Dictated by: Dictated on workstation # [id number]
[2022-05-01] MEDS ORDERED: ONDA4TAB11 PO (20:49)
[2022-05-01] MEDS ORDERED: KETO10TA PO (20:49)
[2022-05-01 21:01] VITALS: BP 126/87
== END 2022-05-01 21:05 | disposition home or self-care (01) ==
LOC: EDUNIT# 19:39 → ER 19:41
DX: R31.9 Hematuria, unspecified (principal); R10.32 Left lower quadrant pain; R11.2 Nausea with vomiting, unspecified; Z87.442 Personal history of urinary calculi; Z90.49 Acquired absence of other specified parts of digestive tract; Z28.310 Unvaccinated for COVID-19
CPT/HCPCS: 74018; 74176; 80053; 80306; 81000; 85025; 99284; G0480; 36415; 80320

== ENCOUNTER → 2022-05-02 | Outpatient (CLI) | payer BC ==
[~2022-05-02] MED LIST changes: +KETO10TA PO; +ONDA4TAB11 PO
--- NOTE | 2022-05-02 18:17 | Diagnostic Imaging Report ---
EXAMINATION: Abdomen 1 view HISTORY: Left flank pain COMPARISON: 05/01/2022 FINDINGS: No calcifications are seen projecting over the kidneys or ureters. Moderate amount of stool is present. No dilated bowel. IMPRESSION: 1. No calcifications are seen projecting over the kidneys or ureters. Dictated by: Dictated on workstation # [id number]
== END ==
LOC: RAD FS 14:42
PROVIDERS: ATTEND Nurse Practitioner Family
DX: R10.32 Left lower quadrant pain (principal); Z87.442 Personal history of urinary calculi
CPT/HCPCS: 74018

== ENCOUNTER → 2022-05-03 | Outpatient (CLI) | payer BC ==
[~2022-05-03] VITALS: Ht 167.6 cm; Wt 68.2 kg
[~2022-05-03] MED LIST changes: +GADOTERATE 0.5 MMOL/ML (CLARISCAN) 15 ML VIAL IV ONE; +IOHEXOL 240 MGI/ML 50 ML (OMNIPAQUE) VIAL IV ONE; +LIDOCAINE 1% INJ 10 ML VIAL INJ ONE; +LIDOCAINE 1% INJ 50 ML (XYLOCAINE) VIAL IJ ONE; +LIDOCAINE 1% INJ 50 ML (XYLOCAINE) VIAL ONE
--- NOTE | 2022-05-03 13:42 | Diagnostic Imaging Report ---
INDICATION: Right shoulder pain. DETAILS OF THE PROCEDURE: The patient was brought to the fluoroscopy suite and placed on the table in the supine position. The skin of the right shoulder was prepped and draped in the usual sterile fashion. A small amount of 1% lidocaine was utilized for local anesthesia. A 21-gauge needle was advanced and placed with its tip at the rotator interval. A 15 mL solution of iodinated contrast, normal saline, and gadolinium was injected under fluoroscopic observation. The needle was removed and hemostasis was obtained. A total of 10 seconds of fluoroscopic time was utilized. The patient tolerated the procedure well and was sent to MRI in satisfactory condition. IMPRESSION: Successful right shoulder injection of gadolinium contrast solution using fluoroscopy. Dictated by: Dictated on workstation # [id number]
--- NOTE | 2022-05-03 15:54 | Diagnostic Imaging Report ---
PROCEDURE: MRI upper extremity any joint with contrast right. TECHNIQUE: Multiplanar, multisequence contrast-enhanced MRI of the right upper extremity was accomplished. INDICATION: Right shoulder pain, felt a pop 5 weeks ago. COMPARISON: None. FINDINGS: No acute fracture is seen in the right shoulder. Alignment appears normal. The joint space is well distended with contrast. The supraspinatus, infraspinatus, teres minor, and subscapularis tendons appear to be intact. There is no muscular atrophy. The long head of the biceps tendon appears normal. The glenoid labrum demonstrates fraying and partial tearing superiorly extending to about 1 o'clock anteriorly to 11 o'clock posteriorly. No paralabral cyst is seen. The acromion has a curved undersurface. The coracoclavicular and coracoacromial ligaments are intact. The soft tissues about the right shoulder are otherwise unremarkable. IMPRESSION: 1. Fraying and low-grade tearing at the superior right glenoid labrum. No paralabral cyst is seen. 2. No high-grade partial thickness or full thickness rotator cuff tear is seen. Dictated by: Dictated on workstation # [id number]
== END ==
LOC: RAD 04-21 09:00
PROVIDERS: ATTEND Nurse Practitioner
DX: S43.51XA Sprain of right acromioclavicular joint, initial encounter (principal); S49.90XA Unspecified injury of shoulder and upper arm, unspecified arm, initial encounter; X58.XXXA Exposure to other specified factors, initial encounter
CPT/HCPCS: 23350; 73040; 73222

== ENCOUNTER 2022-05-05 19:24 | Emergency (ER) | payer BC ==
[~2022-05-05] VITALS: Ht 172.7 cm; Wt 73.4 kg
[~2022-05-05 19:24] MED LIST changes: -GADOTERATE 0.5 MMOL/ML (CLARISCAN) 15 ML VIAL IV ONE; -IOHEXOL 240 MGI/ML 50 ML (OMNIPAQUE) VIAL IV ONE; -LIDOCAINE 1% INJ 10 ML VIAL INJ ONE; -LIDOCAINE 1% INJ 50 ML (XYLOCAINE) VIAL IJ ONE; -LIDOCAINE 1% INJ 50 ML (XYLOCAINE) VIAL ONE
[2022-05-05] MEDS ORDERED: ANTACID SUSP 30 ML UDC (MYLANTA) PO ONE (20:15)
[2022-05-05] MEDS ORDERED: ONDANSETRON 4 MG (ZOFRAN) ORAL DISSOLVE TAB SL ONE (20:15)
[2022-05-05] MEDS ORDERED: LIDOCAINE 2% VISCOUS 15 ML UDC PO ONE (20:15)
[2022-05-05 21:27] VITALS: BP 120/89
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
== END 2022-05-05 21:47 | disposition home or self-care (01) ==
LOC: EDUNIT# 19:24 → ER 19:25
DX: S43.431A Superior glenoid labrum lesion of right shoulder, initial encounter (principal); R10.13 Epigastric pain; R11.2 Nausea with vomiting, unspecified; R20.2 Paresthesia of skin; M54.6 Pain in thoracic spine; R53.1 Weakness; X58.XXXA Exposure to other specified factors, initial encounter
CPT/HCPCS: 99283

== ENCOUNTER 2022-05-13 18:15 | Emergency (ER) | payer OTHER, BC ==
[~2022-05-13] VITALS: Ht 177.8 cm; Wt 73.4 kg
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
--- NOTE | 2022-05-13 19:41 | Diagnostic Imaging Report ---
CLINICAL HISTORY: Mid back pain. COMPARISON: None. TECHNIQUE: 3 views of the thoracic spine. FINDINGS: There is no acute fracture or dislocation of the thoracic spine. Alignment is anatomic. The vertebral body heights are well maintained. No focal osseous lesion is seen. IMPRESSION: No acute fracture or dislocation in the thoracic spine. Dictated by: Dictated on workstation # [id number]
--- NOTE | 2022-05-13 19:41 | Diagnostic Imaging Report ---
CLINICAL HISTORY: Right shoulder pain. COMPARISON: None. TECHNIQUE: 3 views of the right shoulder. FINDINGS: There is no acute fracture or dislocation of the right shoulder. Alignment is anatomic. The imaged joint spaces are preserved. No focal osseous lesion. The included lungs are clear. IMPRESSION: No acute fracture or dislocation in the right shoulder. Dictated by: Dictated on workstation # [id number]
[2022-05-13] MEDS ORDERED: IBUPROFEN 600 MG (MOTRIN) TAB PO ONE (20:00)
[2022-05-13 20:08] VITALS: BP 125/97
== END 2022-05-13 20:08 | disposition home or self-care (01) ==
LOC: EDUNIT# 18:15 → ER 18:18
DX: S29.012A Strain of muscle and tendon of back wall of thorax, initial encounter (principal); S40.011A Contusion of right shoulder, initial encounter; Z28.310 Unvaccinated for COVID-19; W22.8XXA Striking against or struck by other objects, initial encounter; Y99.0 Civilian activity done for income or pay
CPT/HCPCS: 72072; 73030

== ENCOUNTER 2022-09-08 16:12 | Emergency (ER) | payer BC ==
[~2022-09-08] VITALS: Ht 177.5 cm; Wt 68.5 kg
[2022-09-08] MEDS ORDERED: ONDANSETRON 4 MG (ZOFRAN) ORAL DISSOLVE TAB PO ONE (16:30)
[2022-09-08] MEDS ORDERED: ONDA8TAB13 SL (16:35)
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
--- NOTE | 2022-09-08 17:09 | Diagnostic Imaging Report ---
EXAMINATION: CT brain and CT cervical spine from 09/08/2022. TECHNIQUE: Multiple contiguous axial images were obtained through the brain and cervical spine without the use of intravenous contrast. Sagittal and coronal reformations through the cervical spine were then performed. Auto Exposure Controls were utilized during the CT exam to meet ALARA standards for radiation dose reduction. INDICATION: Chest pain, migraines x3 days. Passed out. Fever and numbness in bilateral arms and legs. Shortness of breath. COMPARISON: 03/31/2022. FINDINGS: BRAIN: There is no hemorrhage or infarct. No mass, mass effect, or midline shift. No hydrocephalus. Paranasal sinuses and mastoid air cells are unremarkable. IMPRESSION: Negative head CT. CT CERVICAL SPINE: Normal height and alignment of the vertebral bodies noted with no compression deformities appreciated. There is endplate irregularity, sclerosis, and anterior spurring, most pronounced at C3-C4, C4-C5, and C5-C6. No acute fractures. Lung apices are clear. Prevertebral soft tissues are unremarkable. IMPRESSION: 1. Chronic findings with no acute osseous abnormality. Dictated by: Dictated on workstation # [id number]
[2022-09-08 17:34] VITALS: BP 129/89
== END 2022-09-08 17:34 | disposition home or self-care (01) ==
LOC: EDUNIT# 16:12 → ER 16:14
DX: S06.0X9A Concussion with loss of consciousness of unspecified duration, initial encounter (principal); Z28.310 Unvaccinated for COVID-19; W01.198A Fall on same level from slipping, tripping and stumbling with subsequent striking against other object, initial encounter
CPT/HCPCS: 70450; 72125

== ENCOUNTER 2022-09-26 16:30 | Emergency (ER) | payer BC ==
[~2022-09-26] VITALS: Ht 177.8 cm; Wt 68.0 kg
[~2022-09-26 16:30] MED LIST changes: +ONDA8TAB13 SL
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
[2022-09-26 17:05] LABS: BASOPHILS % (AUTO) 1 % (0-10); EOSINOPHILS # (AUTO) 0.1 10^3/uL (0.0-0.3); EOSINOPHILS % (AUTO) 1 % (0-10); HEMATOCRIT 45 % (40-54); HEMOGLOBIN 15.6 g/dL (13.3-17.7); LYMPHOCYTES # (AUTO) 2.1 10^3/uL (1.0-4.0); LYMPHOCYTES % (AUTO) 33 % (12-44); MEAN CORPUSCULAR HEMOGLOBIN 30 pg (25-34); MEAN CORPUSCULAR HGB CONC 35 g/dL (32-36); MEAN CORPUSCULAR VOLUME 87 fL (80-99); MEAN PLATELET VOLUME 9.5 fL (9.0-12.2); MONOCYTES # (AUTO) 0.5 10^3/uL (0.0-1.0); MONOCYTES % (AUTO) 8 % (0-12); NEUTROPHILS # (AUTO) 3.8 10^3/uL (1.8-7.8); NEUTROPHILS % (AUTO) 58 % (42-75); PLATELET COUNT 250 10^3/uL (130-400); WHITE BLOOD COUNT 6.5 10^3/uL (4.3-11.0)
[2022-09-26 17:15] LABS: ALBUMIN 4.3 GM/DL (3.2-4.5); POTASSIUM 4.1 MMOL/L (3.6-5.0)
[2022-09-26 17:16] LABS: CALCIUM 9.2 MG/DL (8.5-10.1)
[2022-09-26 17:18] LABS: TOTAL PROTEIN 7.9 GM/DL (6.4-8.2)
[2022-09-26 17:19] LABS: BILIRUBIN,TOTAL 0.7 MG/DL (0.1-1.0)
[2022-09-26 17:21] LABS: CREATININE SERUM 1.02 MG/DL (0.60-1.30)
[2022-09-26 17:24] LABS: MAGNESIUM 2.5 MG/DL (1.6-2.4)
[2022-09-26 17:45] LABS: INR 0.9 (0.8-1.4)
--- NOTE | 2022-09-26 18:04 | Diagnostic Imaging Report ---
PATIENT HISTORY: Chest pain. TECHNIQUE: Single frontal view of the chest. COMPARISON: 11/27/2021. FINDINGS: The lung volumes are normal. No focal consolidation is seen. No large pleural effusion or pneumothorax is seen. The cardiomediastinal silhouette is normal in size and contour. No acute osseous abnormality is seen. IMPRESSION: No acute pulmonary abnormality seen. Dictated by: Dictated on workstation # [id number]
[2022-09-26 18:30] VITALS: BP 124/91
[2022-09-27] MEDS ORDERED: ONDA8TAB13 SL (23:33)
== END 2022-09-26 18:32 | disposition home or self-care (01) ==
LOC: EDUNIT# 16:30 → ER 16:32
DX: R07.89 Other chest pain (principal); Z28.310 Unvaccinated for COVID-19
CPT/HCPCS: 36415; 71045; 80053; 83735; 83880; 84484; 85025; 85610; 85730; 93005; 93041

== ENCOUNTER 2022-09-27 22:32 | Emergency (ER) | payer BC ==
[~2022-09-27] VITALS: Ht 178 cm; Wt 68.0 kg
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
[2022-09-27 23:02] LABS: BASOPHILS % (AUTO) 0 % (0-10); EOSINOPHILS # (AUTO) 0.1 10^3/uL (0.0-0.3); EOSINOPHILS % (AUTO) 1 % (0-10); HEMATOCRIT 43 % (40-54); HEMOGLOBIN 15.2 g/dL (13.3-17.7); LYMPHOCYTES # (AUTO) 2.8 10^3/uL (1.0-4.0); LYMPHOCYTES % (AUTO) 31 % (12-44); MEAN CORPUSCULAR HEMOGLOBIN 31 pg (25-34); MEAN CORPUSCULAR HGB CONC 36 g/dL (32-36); MEAN CORPUSCULAR VOLUME 86 fL (80-99); MEAN PLATELET VOLUME 9.8 fL (9.0-12.2); MONOCYTES # (AUTO) 0.6 10^3/uL (0.0-1.0); MONOCYTES % (AUTO) 7 % (0-12); NEUTROPHILS # (AUTO) 5.3 10^3/uL (1.8-7.8); NEUTROPHILS % (AUTO) 60 % (42-75); PLATELET COUNT 266 10^3/uL (130-400); WHITE BLOOD COUNT 8.8 10^3/uL (4.3-11.0)
[2022-09-27 23:14] LABS: CHLORIDE 104 MMOL/L (98-107); POTASSIUM 4.1 MMOL/L (3.6-5.0); SODIUM 140 MMOL/L (135-145)
[2022-09-27 23:15] LABS: CALCIUM 9.2 MG/DL (8.5-10.1); GLUCOSE 84 MG/DL (70-105)
[2022-09-27 23:17] LABS: CARBON DIOXIDE 26 MMOL/L (21-32)
[2022-09-27 23:19] LABS: CREATININE SERUM 1.24 MG/DL (0.60-1.30); GFR ESTIMATED 79
[2022-09-27 23:20] LABS: BUN/CREATININE RATIO 19
[2022-09-27] MEDS ORDERED: ONDA8TAB13 SL (23:33)
[2022-09-27 23:35] VITALS: BP 138/96
--- NOTE | 2022-09-28 06:44 | Diagnostic Imaging Report ---
Indication: Chest pain Portable chest 10:47 PM Heart and mediastinum are normal. Lungs are clear. There are no effusions or pneumothoraces. IMPRESSION: Negative chest Dictated by: Dictated on workstation # [id number]
== END 2022-09-27 23:38 | disposition home or self-care (01) ==
LOC: EDUNIT# 22:32 → ER 22:33
DX: R07.89 Other chest pain (principal); R11.2 Nausea with vomiting, unspecified; Z28.310 Unvaccinated for COVID-19
CPT/HCPCS: 36415; 71045; 80048; 84484; 85025; 93005

== ENCOUNTER 2022-10-16 16:49 | Emergency (ER) | payer BC ==
[~2022-10-16] VITALS: Ht 178 cm; Wt 68.0 kg
[2022-10-16] MEDS ORDERED: ONDA4TAB11 SL (17:40)
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
[2022-10-16 18:08] VITALS: BP 130/78
== END 2022-10-16 18:08 | disposition home or self-care (01) ==
LOC: EDUNIT# 16:49 → ER 16:52
DX: J06.9 Acute upper respiratory infection, unspecified (principal); Z28.310 Unvaccinated for COVID-19; Z20.822 Contact with and (suspected) exposure to COVID-19
CPT/HCPCS: 87636; 99283

== ENCOUNTER 2022-11-03 09:32 | Emergency (ER) | payer BC ==
[~2022-11-03] VITALS: Ht 177 cm; Wt 65.7 kg
[~2022-11-03 09:32] MED LIST changes: +LIDO15SO6 MM; -LIDO20SO23 MM
[2022-11-03] MEDS ORDERED: ANTACID SUSP 30 ML UDC (MYLANTA) PO ONE (10:00)
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
[2022-11-03] MEDS ORDERED: FLUT15.845 NS (10:15)
[2022-11-03] MEDS ORDERED: CETI10TA17 PO (10:15)
[2022-11-03] MEDS ORDERED: PANT40TA2 PO (10:15)
[2022-11-03] MEDS ORDERED: SUMA20SP NS (10:15)
[2022-11-03] MEDS ORDERED: SUCR1TAB PO (10:31)
[2022-11-03] MEDS ORDERED: PANT40SU PO (10:31)
[2022-11-03 10:39] VITALS: BP 139/96
== END 2022-11-03 10:39 | disposition home or self-care (01) ==
LOC: EDUNIT# 09:32 → ER 09:33
DX: R13.10 Dysphagia, unspecified (principal)
CPT/HCPCS: 99283

== ENCOUNTER 2022-11-06 18:59 | Emergency (ER) | payer BC ==
[~2022-11-06] VITALS: Ht 177.8 cm; Wt 65.8 kg
[~2022-11-06 18:59] MED LIST changes: +CETI10TA17 PO; +FLUT15.845 NS; +PANT40SU PO; +PANT40TA2 PO; +SUCR1TAB PO; +SUMA20SP NS
[2022-11-06 19:10] VITALS: BP 145/97
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
[2022-11-06 19:51] LABS: BASOPHILS % (AUTO) 0 % (0-10); EOSINOPHILS # (AUTO) 0.1 10^3/uL (0.0-0.3); EOSINOPHILS % (AUTO) 1 % (0-10); HEMATOCRIT 45 % (40-54); HEMOGLOBIN 15.8 g/dL (13.3-17.7); LYMPHOCYTES # (AUTO) 2.1 10^3/uL (1.0-4.0); LYMPHOCYTES % (AUTO) 20 % (12-44); MEAN CORPUSCULAR HEMOGLOBIN 30 pg (25-34); MEAN CORPUSCULAR HGB CONC 35 g/dL (32-36); MEAN CORPUSCULAR VOLUME 85 fL (80-99); MEAN PLATELET VOLUME 9.5 fL (9.0-12.2); MONOCYTES # (AUTO) 0.6 10^3/uL (0.0-1.0); MONOCYTES % (AUTO) 5 % (0-12); NEUTROPHILS # (AUTO) 7.8 10^3/uL (1.8-7.8); NEUTROPHILS % (AUTO) 73 % (42-75); PLATELET COUNT 270 10^3/uL (130-400); WHITE BLOOD COUNT 10.6 10^3/uL (4.3-11.0)
--- NOTE | 2022-11-06 19:58 | Diagnostic Imaging Report ---
INDICATION: 32-year-old male with chest pain COMPARISONS: 09/27/2022 FINDINGS: Single view chest shows the cardiac contour to be normal. There is slight prominence of the central lung markings. No consolidations are seen. There is no effusion or pneumothorax. Soft tissues and bony thorax are unremarkable. IMPRESSION: Questionable mild bronchitis but no acute consolidation is seen. Dictated by: Dictated on workstation # [id number]
[2022-11-06] MEDS ORDERED: NS IV 1000 ML 1,000 ML IV SCH (20:00)
[2022-11-06 20:21] LABS: ALBUMIN 4.3 GM/DL (3.2-4.5); BILIRUBIN,TOTAL 0.6 MG/DL (0.1-1.0); CALCIUM 9.5 MG/DL (8.5-10.1); CREATININE SERUM 1.13 MG/DL (0.60-1.30); MAGNESIUM 2.3 MG/DL (1.6-2.4); POTASSIUM 4.3 MMOL/L (3.6-5.0); TOTAL PROTEIN 8.1 GM/DL (6.4-8.2)
== END 2022-11-06 22:15 | disposition home or self-care (01) ==
LOC: EDUNIT# 18:59 → ER 19:01
DX: R42 Dizziness and giddiness (principal); I10 Essential (primary) hypertension; Z28.310 Unvaccinated for COVID-19
CPT/HCPCS: 36415; 71045; 80053; 83735; 84484; 85025; 93005; 93041

== ENCOUNTER 2022-11-13 09:21 | Day surgery (SDC) | payer BC ==
[~2022-11-13] VITALS: Ht 177.8 cm; Wt 65.8 kg
[2022-11-13] MEDS ORDERED: LACTATED RINGERS 1,000 ML IV STA (09:25)
[2022-11-13] MEDS ORDERED: HURRICAINE EXT TUBE (BENZOCAINE) XX PRN (09:30)
--- NOTE | 2022-11-13 09:43 | Progress Note-Pre Operative ---
Pre-Operative Progress Note Date of Available H&P: Oct 31, 2022 Date H&P Reviewed: Nov 13, 2022 Time H&P Reviewed: 09:40 History & Physical: H&P Reviewed, Patient Examed, No changes noted Pre-Operative Diagnosis: GERD, Dysphagia ROSEANN BENITO DO Nov 13, 2022 09:43
[2022-11-13 09:52] VITALS: BP 135/91
[2022-11-13] MEDS ORDERED: proPOfol 200 MG/20 ML (DIPRIVAN) VIAL IV ONE (10:54)
[2022-11-13] MEDS ORDERED: MIDAZOLAM 2 MG/2 ML (VERSED) VIAL ONE (10:55)
[2022-11-13 11:10] VITALS: BP 132/93
--- NOTE | 2022-11-13 11:11 | Progress Note-Post Operative ---
Post-Operative Progess Note Surgeon (s)/Cloth Classer (s) Surgeon ROSEANN BENITO DO Cloth Classer: none Pre-Operative Diagnosis GERD, Dysphagia Post-Operative Diagnosis Esophagitis Gastritis Small sliding Hiatal hernia Procedure & Operative Findings Date of Procedure 11/13/22 Procedure Performed/Findings EGD with biopsy PROCEDURE NOTE: After informed consent was obtained, the patient was brought to the endoscopy suite, placed in bed in left lateral decubitus position. He was administered IV sedation by the BLUEPRINT PROCESSOR who then monitored vitals the entire time, heart rate, blood pressure and pulse ox and the scope was inserted down the mouth through the esophagus into the stomach. On the way down, noted some mild esophagitis, took a picture, pushed into the stomach, pushed past the antrum into the duodenum. Duodenum looked good. Pulled back and did a biopsy of the antrum, then retroflexed the scope and saw a small sliding hiatal hernia. I took a picture of this and then did a biopsy of the body of the stomach. Next, I pulled the scope into the GE junction, took another picture of the hiatal hernia and then did a biopsy of the GE junction. Pushed the scope back into the stomach, suctioned all the air out of the stomach. At this point pulled the scope up the esophagus and at the top of the esophagus noted some mucosal changes and did a biopsy here and took a picture. Finally pulled the scope out of the mouth. The patient tolerated the procedure, and he recovered in endoscopy suite. Anesthesia Type IV sedation by BLUEPRINT PROCESSOR Estimated Blood Loss Estimated blood loss (mL): scant Specimens/Packing Specimens Removed antral bx body of stomach bx GE jxn bx upper esophagus bx ROSEANN BENITO DO Nov 13, 2022 11:11
--- NOTE | 2022-11-13 11:14 | Endoscopy Discharge Instruct ---
Endo Procedure/Findings Findings 1.: Gastritis 2.: Hiatal Hernia 3.: Other Findings (Esophagitis) Discharge Instructions - Activity: You might feel a little sleepy until tomorrow. This is due to the medicine you received to relax you. Until tomorrow, you should: NOT drive a car, operate machinery or power tools. NOT drink any alcoholic beverages. NOT make any important decisions or sign importortant papers. Do not return to work until tomorrow, unless otherwise instructed. Resume previous activities tomorrow. Diet: Start by taking liquids. If you tolerate liquids, advance to solid food. 1.: EGD in 3 years Notify Physician - If you experience excessive bleeding, unusual abdominal pain, fever, or chest pain, contact your doctor immediately. ROSEANN BENITO DO Nov 13, 2022 11:13
[2022-11-13 11:15] VITALS: BP 130/87
[2022-11-13 11:20] VITALS: BP 138/81
[2022-11-13 11:50] VITALS: BP 118/62
--- NOTE | 2022-11-13 12:50 | Anesthesia-General Post-Op ---
MAC Patient Condition Mental Status/LOC: Same as Preop Cardiovascular: Satisfactory Nausea/Vomiting: Absent Respiratory: Satisfactory Pain: Controlled Complications: Absent Post Op Complications Complications None Follow Up Care/Instructions Patient Instructions None needed. Anesthesiology Discharge Order Discharge Order Patient is doing well, no complaints, stable vital signs, no apparent adverse anesthesia problems. No complications reported per nursing. GABRIELLE DOMINGO CRNA Nov 13, 2022 12:50
== END 2022-11-13 12:00 | disposition home or self-care (01) ==
LOC: ENDO 09:21
PROVIDERS: ATTEND Surgery
DX: K21.00 Gastro-esophageal reflux disease with esophagitis, without bleeding (principal); K29.50 Unspecified chronic gastritis without bleeding; K31.89 Other diseases of stomach and duodenum; K44.9 Diaphragmatic hernia without obstruction or gangrene; Z28.310 Unvaccinated for COVID-19
CPT/HCPCS: 88305

== ENCOUNTER 2023-04-05 01:53 | Emergency (ER) | payer OTHER ==
[~2023-04-05] VITALS: Ht 177.8 cm; Wt 70.2 kg
[~2023-04-05 01:53] MED LIST changes: +LIDO15SO3 MM; -LIDO15SO6 MM
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
[2023-04-05 03:20] VITALS: BP 138/90
--- NOTE | 2023-04-05 06:28 | Diagnostic Imaging Report ---
SHOULDER 3 VIEW RIGHT INDICATION: Right shoulder pain COMPARISON: None available. TECHNIQUE: 3 views of the right shoulder FINDINGS: No acute fracture. The glenohumeral and acromioclavicular joints are normal in alignment. Subacromial space is preserved. Metallic fixation button on the anterior aspect of the proximal humeral shaft is likely from prior tendon repair. IMPRESSION: No acute osseous normality around the right shoulder. Dictated by: Dictated on workstation # [id number]
== END 2023-04-05 03:20 | disposition home or self-care (01) ==
LOC: EDUNIT# 01:53 → ER FS 01:56
DX: S49.91XA Unspecified injury of right shoulder and upper arm, initial encounter (principal); Z28.310 Unvaccinated for COVID-19; X50.1XXA Overexertion from prolonged static or awkward postures, initial encounter
CPT/HCPCS: 73030

== ENCOUNTER 2023-04-16 20:32 | Emergency (ER) | payer SELFPAY | END 2023-04-16 20:47 | disposition left against medical advice (07) | LOC: EDUNIT# 20:32 → ER FS 20:33 | DX: Z13.30 Encounter for screening examination for mental health and behavioral disorders, unspecified (principal) ==

== ENCOUNTER 2023-05-13 19:34 | Emergency (ER) | payer SELFPAY ==
[~2023-05-13] VITALS: Ht 177.8 cm; Wt 65.5 kg
[2023-05-13] MEDS ORDERED: NS IV 1000 ML 1,000 ML IV STA (19:52)
[2023-05-13] MEDS ORDERED: ONDANSETRON INJECTION 4 MG/2 ML (SDV) IVP ONE (20:00)
[2023-05-13 20:15] LABS: BASOPHILS % (AUTO) 1 % (0-10); EOSINOPHILS # (AUTO) 0.1 10^3/uL (0.0-0.3); EOSINOPHILS % (AUTO) 1 % (0-10); HEMATOCRIT 48 % (40-54); HEMOGLOBIN 16.6 g/dL (13.3-17.7); LYMPHOCYTES # (AUTO) 2.2 10^3/uL (1.0-4.0); LYMPHOCYTES % (AUTO) 28 % (12-44); MEAN CORPUSCULAR HEMOGLOBIN 30 pg (25-34); MEAN CORPUSCULAR HGB CONC 35 g/dL (32-36); MEAN CORPUSCULAR VOLUME 87 fL (80-99); MEAN PLATELET VOLUME 9.9 fL (9.0-12.2); MONOCYTES # (AUTO) 0.5 10^3/uL (0.0-1.0); MONOCYTES % (AUTO) 6 % (0-12); NEUTROPHILS # (AUTO) 4.9 10^3/uL (1.8-7.8); NEUTROPHILS % (AUTO) 63 % (42-75); PLATELET COUNT 263 10^3/uL (130-400); WHITE BLOOD COUNT 7.7 10^3/uL (4.3-11.0)
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
[2023-05-13 20:37] LABS: POTASSIUM 4.5 MMOL/L (3.6-5.0); SODIUM 139 MMOL/L (135-145)
[2023-05-13 20:38] LABS: ALANINE AMINOTRANSFERASE 22 U/L (0-55); ALBUMIN 4.8 GM/DL (3.2-4.5); ALKALINE PHOSPHATASE 125 U/L (40-136); BUN/CREATININE RATIO 11; CALCIUM 9.7 MG/DL (8.5-10.1); CARBON DIOXIDE 28 MMOL/L (21-32); CHLORIDE 101 MMOL/L (98-107); CREATININE SERUM 1.15 MG/DL (0.60-1.30); GFR ESTIMATED 86; GLUCOSE 89 MG/DL (70-105); LIPASE 33 U/L (8-78); TOTAL PROTEIN 8.4 GM/DL (6.4-8.2)
[2023-05-13] MEDS ORDERED: KETOROLAC INJ 30 MG/ML VIAL IVP ONE (21:00)
--- NOTE | 2023-05-13 21:21 | Diagnostic Imaging Report ---
PROCEDURE: CT abdomen and pelvis without contrast. TECHNIQUE: Multiple contiguous axial images were obtained through the abdomen and pelvis without the use of intravenous contrast. Auto Exposure Controls were utilized during the CT exam to meet ALARA standards for radiation dose reduction. INDICATION: Left-sided abdominal pain. COMPARISON: Study of 05/01/2022. FINDINGS: There is no radiopaque urinary tract calculi. There is no hydroureteronephrosis. The air-containing appendix normal. There is no diverticulitis. Unopacified urinary bladder unremarkable. No pneumatosis. No free gas. No ascites, abscess, hematoma or acute fluid collection. Gallbladder absent. Liver, bile ducts, spleen, adrenals and pancreas unremarkable. At this nonenhanced exam the aorta is nonaneurysmal. The adequately distended portions of the colon not significantly thickened, however, much of the colon was nondistended and a component of wall thickening could not be definitively excluded. There is, however, no pericolonic stranding or edema to confirm a colitis or other acute abnormality. The abdominal wall is intact. The bony structures and lung bases nonacute. IMPRESSION: Unobstructed urinary tracts. No bowel obstruction. No convincing small or large bowel inflammation but colonic evaluation limited by the lack of distention. Normal appendix. Dictated by: Dictated on workstation # [id number]
[2023-05-13 21:45] LABS: BILIRUBIN,URINE NEGATIVE (NEGATIVE); CLARITY,URINE CLEAR; GLUCOSE, URINE (UA) NEGATIVE (NEGATIVE); KETONES,URINE NEGATIVE (NEGATIVE); LEUKOCYTE ESTERASE ,URINE TRACE (NEGATIVE); NITRITE,URINE NEGATIVE (NEGATIVE); PH,URINE 6.5 (5-9); PROTEIN,URINE NEGATIVE (NEGATIVE)
[2023-05-13 21:56] LABS: COLOR,URINE DK YELLOW
[2023-05-13 21:57] LABS: BACTERIA,URINE NEGATIVE /HPF
[2023-05-13] MEDS ORDERED: ONDA4TAB11 PO (22:02)
[2023-05-13 22:05] VITALS: BP 126/86
== END 2023-05-13 22:06 | disposition home or self-care (01) ==
LOC: EDUNIT# 19:34 → ER FS 19:36
DX: K29.00 Acute gastritis without bleeding (principal); Z90.49 Acquired absence of other specified parts of digestive tract
CPT/HCPCS: 36415; 74176; 80053; 81000; 83690; 85025